=== PATIENT | female | born 1975 | race American Indian/Alaskan Native ===

== ENCOUNTER 2017-09-16 08:20 | Day surgery (SDC) | payer BC ==
[2017-09-16 12:26] VITALS: BP 136/77
--- NOTE | 2017-09-16 14:04 | Ultrasound Report ---
ULTRASOUND BIOPSY THYROID History: Goiter. Description of procedure: Informed consent was obtained. Sterile technique was utilized. 1% lidocaine for skin anesthesia. Using ultrasound guidance, 2 fine needle aspirations were obtained from a 1.5 x 0.7 cm well-circumscribed nodule in the mid left thyroid lobe. The samples were deemed adequate by the pathologist. This examination was scheduled as a bilateral thyroid FNA/biopsy. No suspicious right thyroid nodule is demonstrated on ultrasound. Biopsy on the right side was not performed. Impression: Successful ultrasound-guided fine needle aspiration of a 1.5 cm left thyroid nodule.
--- NOTE | 2017-09-16 15:36 | Short Stay Summary ---
Short Stay Documentation Date of service: 09/16/17 - History Principal diagnosis: thyroid nodules H&P: obtained from office - Allergies and Medications Current Medications: Allergies azithromycin [From Zithromax] Adverse Reaction (Severe, Verified 09/16/17 08:46) Nausea ibuprofen [From Advil] Adverse Reaction (Intermediate, Verified 09/16/17 08:46) Nausea Home Medications Medication Instructions Recorded Confirmed Last Taken Type Metoprolol [Lopressor TAB] 50 mg PO QDAY 09/16/17 09/16/17 09/16/17 09:20 History - Physical exam General appearance: no acute distress - Brief post op/procedure progress note Date of procedure: 09/16/17 Pre-op diagnosis: thyroid nodules Post-op diagnosis: same Procedure: US thyroid biopsy, left Anesthesia: local Findings: 1.5cm nodule Surgeon: JHON SHARP Estimated blood loss: none Pathology: list (FNA x 2) Specimen disposition: to lab Condition: stable Short Stay Discharge Plan Follow up with: MG GUADALUPE MD [Primary Care Provider] - 7 Days Forms: Work/School Excuse Out Patient, Thyroid Biopsy DC Instructions
== END 2017-09-16 12:30 ==
LOC: CATHLABREC 08:20 → EDSTATUS 09:00 → CATHLABREC 12:30
PROVIDERS: ATTEND Internal Medicine Hematology & Oncology
DX: E04.2 Nontoxic multinodular goiter (principal)
CPT/HCPCS: 60100; 76942; 88112; 88172; 88173; 88305

== ENCOUNTER 2017-10-04 21:30 | Inpatient (IN) | payer BC ==
[2017-10-04] MEDS ORDERED: ASPIRIN PO ONE (22:11)
[2017-10-04 23:36] LABS: Basophils % (Auto) 0.5 % (0.0-1.8); Eosinophils # (Auto) 0.1 K/mm3 (0.0-0.4); Eosinophils % (Auto) 0.8 % (0.0-4.3); Hematocrit 35.6 % (30.3-42.9); Hemoglobin 11.2 gm/dl (10.1-14.3); Lymphocytes # (Auto) 1.3 K/mm3 (1.2-5.4); Lymphocytes % (Auto) 15.2 % (13.4-35.0); Mean Corpuscular HGB Conc 31 % (30-34); Mean Corpuscular Hemoglobin 22 pg (28-32); Mean Corpuscular Volume 69 fl (79-97); Monocytes # (Auto) 0.4 K/mm3 (0.0-0.8); Monocytes % (Auto) 4.6 % (0.0-7.3); Platelet Count 268 K/mm3 (140-440); Red Blood Count 5.14 M/mm3 (3.65-5.03); Red Cell Distribution Width 18.3 % (13.2-15.2)
[2017-10-04 23:37] LABS: INR 0.97 (0.87-1.13)
[2017-10-04 23:50] LABS: BUN/Creatinine Ratio 8; Blood Urea Nitrogen 6 mg/dL (7-17); Calcium 8.9 mg/dL (8.4-10.2); Hemolysis Index 0
[2017-10-05] MEDS ORDERED: MORPHINE IV ONE (00:02)
[2017-10-05] MEDS ORDERED: ZOFRAN IV ONE (00:02)
[2017-10-05] MEDS ORDERED: LOPRESSOR PO ONE (00:02)
--- NOTE | 2017-10-05 00:08 | Emergency Department Report ---
ED Chest Pain HPI - General Chief Complaint: Chest Pain Stated Complaint: CHEST PAIN,SOB Time Seen by Provider: 10/04/17 23:50 Source: patient Mode of arrival: Ambulatory Limitations: No Limitations - History of Present Illness Initial Comments: 41-year-old female with a past medical history of obesity, hypertension, and GERD currently on Depo-Provera (for menstrual cycle regulation) last injection in June presents to the hospital with complaints of chest pain shortness of breath. Symptoms started this morning. She complains of intermittent sharp right-sided chest pain that then moved to the left side. Pain is worse with inspiration and palpation and movement. Pain is moderate to severe in intensity. Positive associated shortness of breath. She is complaining of intermittent right calf pain or swelling overlying down but improved with ambulation. She denies recent travel, history of PE or DVT. She takes metoprolol 50mg for hypertension once a day with last dose yesterday. Patient had a recent thyroid biopsy but not prescribed any thyroid medication. 2 days ago patient had outpatient IV infusion of iron for iron deficiency anemia. - Related Data Home Medications Medication Instructions Recorded Confirmed Last Taken Metoprolol [Lopressor TAB] 50 mg PO QDAY 09/16/17 09/16/17 09/16/17 09:20 Allergies Allergy/AdvReac Type Severity Reaction Status Date / Time azithromycin [From Zithromax] AdvReac Severe Nausea Verified 09/16/17 08:46 ibuprofen [From Advil] AdvReac Intermediate Nausea Verified 09/16/17 08:46 Heart Score - HEART Score History: Slightly suspicious EKG: Normal Age: < 45 Risk factors: 1-2 risk factors Troponin: 1-3x normal limit HEART Score: 2 ED Review of Systems ROS: Stated complaint: CHEST PAIN,SOB Other details as noted in HPI Comment: All other systems reviewed and negative ED Past Medical Hx - Past Medical History Previous Medical History?: Yes Hx Hypertension: Yes (2016) Hx Heart Attack/AMI: No Hx Congestive Heart Failure: No Hx Diabetes: No Hx GERD: Yes - Surgical History Past Surgical History?: Yes Hx Breast Surgery: Yes (Srinath breast reduction 2008) - Social History Smoking Status: Never Smoker Substance Use Type: None - Medications Home Medications: Home Medications Medication Instructions Recorded Confirmed Last Taken Type Metoprolol [Lopressor TAB] 50 mg PO QDAY 09/16/17 09/16/17 09/16/17 09:20 History ED Physical Exam - General Limitations: No Limitations - Other Other exam information: General: No limitations, patient is alert in no acute distress Head exam: Atraumatic, normocephalic Eyes exam: Normal appearance, pupils equal reactive to light, extraocular movements intact ENT: Moist mucous membrane, normal oropharynx Neck exam: Normal inspection, full range of motion, no meningismus nontender Respiratory exam: Clear to auscultation bilateral, no wheezes, rales, crackles Cardiovascular: Tachycardic regular rhythm. Reproducible right upper anterior chest wall tenderness Abdomen: Soft, nondistended, and nontender, with normal bowel sounds, no rebound, or guarding Extremity: Full range of motion, right calf tenderness without edema or asymmetry Back: Normal Inspection, full range of motion, no tenderness Neurologic: Alert, oriented x3, cranial nerves intact, no motor or sensory deficit Psychiatric: normal affect, normal mood Skin: Warm, dry, intact ED Course Vital Signs 10/04/17 10/04/17 10/05/17 21:43 23:49 00:15 Temperature 98.4 F Pulse Rate 118 H 150 H Respiratory 24 19 Rate Blood Pressure 153/106 152/114 O2 Sat by Pulse 96 Oximetry 10/05/17 10/05/17 10/05/17 00:30 00:32 01:00 Temperature Pulse Rate 113 H 112 H Respiratory 18 Rate Blood Pressure 160/106 152/14 148/109 O2 Sat by Pulse Oximetry ED Medical Decision Making - Lab Data Result diagrams: 10/04/17 23:15 10/04/17 23:15 Lab Results 10/04/17 10/04/17 10/04/17 Range/Units 23:15 23:15 23:15 WBC 8.6 (4.5-11.0) K/mm3 RBC 5.14 H (3.65-5.03) M/mm3 Hgb 11.2 (10.1-14.3) gm/dl Hct 35.6 (30.3-42.9) % MCV 69 L (79-97) fl MCH 22 L (28-32) pg MCHC 31 (30-34) % RDW 18.3 H (13.2-15.2) % Plt Count 268 (140-440) K/mm3 Lymph % (Auto) 15.2 (13.4-35.0) % [place] % (Auto) 4.6 (0.0-7.3) % Eos % (Auto) 0.8 (0.0-4.3) % Baso % (Auto) 0.5 (0.0-1.8) % Lymph # 1.3 (1.2-5.4) K/mm3 [place] # 0.4 (0.0-0.8) K/mm3 Eos # 0.1 (0.0-0.4) K/mm3 Baso # 0.0 (0.0-0.1) K/mm3 Seg Neutrophils % 78.9 H (40.0-70.0) % Seg Neutrophils # 6.8 (1.8-7.7) K/mm3 PT (12.2-14.9) Sec. INR (0.87-1.13) D-Dimer (0-234) ng/mlDDU Sodium 137 (137-145) mmol/L Potassium 4.1 (3.6-5.0) mmol/L Chloride 100.5 (98-107) mmol/L Carbon Dioxide 25 (22-30) mmol/L Anion Gap 16 mmol/L BUN 6 L (7-17) mg/dL Creatinine 0.8 (0.7-1.2) mg/dL Estimated GFR > 60 ml/min BUN/Creatinine Ratio 8 % Glucose 136 H (65-100) mg/dL Calcium 8.9 (8.4-10.2) mg/dL Troponin T 0.168 H* (0.00-0.029) ng/mL Triglycerides 58 (2-149) mg/dL Cholesterol 137 (50-199) mg/dL LDL Cholesterol Direct 79 (50-130) mg/dL HDL Cholesterol 47 (40-59) mg/dL Cholesterol/HDL Ratio 2.91 % TSH (0.270-4.200) mlU/mL Free T4 (0.76-1.46) ng/dL HCG, Qual Negative (Negative) Urine Color (Yellow) Urine Turbidity (Clear) Urine pH (5.0-7.0) Ur Specific [place] (1.003-1.030) Urine Protein (Negative) mg/dL Urine Glucose (UA) (Negative) mg/dL Urine Ketones (Negative) mg/dL Urine Blood (Negative) Urine Nitrite (Negative) Urine Bilirubin (Negative) Urine Urobilinogen (<2.0) mg/dL Ur Leukocyte Esterase (Negative) Urine WBC (Auto) (0.0-6.0) /HPF Urine RBC (Auto) (0.0-6.0) /HPF U Epithel Cells (Auto) (0-13.0) /HPF Urine Mucus /HPF 10/04/17 10/05/17 10/05/17 Range/Units 23:15 00:28 00:28 WBC (4.5-11.0) K/mm3 RBC (3.65-5.03) M/mm3 Hgb (10.1-14.3) gm/dl Hct (30.3-42.9) % MCV (79-97) fl MCH (28-32) pg MCHC (30-34) % RDW (13.2-15.2) % Plt Count (140-440) K/mm3 Lymph % (Auto) (13.4-35.0) % [place] % (Auto) (0.0-7.3) % Eos % (Auto) (0.0-4.3) % Baso % (Auto) (0.0-1.8) % Lymph # (1.2-5.4) K/mm3 [place] # (0.0-0.8) K/mm3 Eos # (0.0-0.4) K/mm3 Baso # (0.0-0.1) K/mm3 Seg Neutrophils % (40.0-70.0) % Seg Neutrophils # (1.8-7.7) K/mm3 PT 13.4 (12.2-14.9) Sec. INR 0.97 (0.87-1.13) D-Dimer 2453.83 H (0-234) ng/mlDDU Sodium (137-145) mmol/L Potassium (3.6-5.0) mmol/L Chloride (98-107) mmol/L Carbon Dioxide (22-30) mmol/L Anion Gap mmol/L BUN (7-17) mg/dL Creatinine (0.7-1.2) mg/dL Estimated GFR ml/min BUN/Creatinine Ratio % Glucose (65-100) mg/dL Calcium (8.4-10.2) mg/dL Troponin T 0.151 H* (0.00-0.029) ng/mL Triglycerides (2-149) mg/dL Cholesterol (50-199) mg/dL LDL Cholesterol Direct (50-130) mg/dL HDL Cholesterol (40-59) mg/dL Cholesterol/HDL Ratio % TSH 1.460 (0.270-4.200) mlU/mL Free T4 1.33 (0.76-1.46) ng/dL HCG, Qual (Negative) Urine Color (Yellow) Urine Turbidity (Clear) Urine pH (5.0-7.0) Ur Specific [place] (1.003-1.030) Urine Protein (Negative) mg/dL Urine Glucose (UA) (Negative) mg/dL Urine Ketones (Negative) mg/dL Urine Blood (Negative) Urine Nitrite (Negative) Urine Bilirubin (Negative) Urine Urobilinogen (<2.0) mg/dL Ur Leukocyte Esterase (Negative) Urine WBC (Auto) (0.0-6.0) /HPF Urine RBC (Auto) (0.0-6.0) /HPF U Epithel Cells (Auto) (0-13.0) /HPF Urine Mucus /HPF 10/05/17 Range/Units 00:47 WBC (4.5-11.0) K/mm3 RBC (3.65-5.03) M/mm3 Hgb (10.1-14.3) gm/dl Hct (30.3-42.9) % MCV (79-97) fl MCH (28-32) pg MCHC (30-34) % RDW (13.2-15.2) % Plt Count (140-440) K/mm3 Lymph % (Auto) (13.4-35.0) % [place] % (Auto) (0.0-7.3) % Eos % (Auto) (0.0-4.3) % Baso % (Auto) (0.0-1.8) % Lymph # (1.2-5.4) K/mm3 [place] # (0.0-0.8) K/mm3 Eos # (0.0-0.4) K/mm3 Baso # (0.0-0.1) K/mm3 Seg Neutrophils % (40.0-70.0) % Seg Neutrophils # (1.8-7.7) K/mm3 PT (12.2-14.9) Sec. INR (0.87-1.13) D-Dimer (0-234) ng/mlDDU Sodium (137-145) mmol/L Potassium (3.6-5.0) mmol/L Chloride (98-107) mmol/L Carbon Dioxide (22-30) mmol/L Anion Gap mmol/L BUN (7-17) mg/dL Creatinine (0.7-1.2) mg/dL Estimated GFR ml/min BUN/Creatinine Ratio % Glucose (65-100) mg/dL Calcium (8.4-10.2) mg/dL Troponin T (0.00-0.029) ng/mL Triglycerides (2-149) mg/dL Cholesterol (50-199) mg/dL LDL Cholesterol Direct (50-130) mg/dL HDL Cholesterol (40-59) mg/dL Cholesterol/HDL Ratio % TSH (0.270-4.200) mlU/mL Free T4 (0.76-1.46) ng/dL HCG, Qual (Negative) Urine Color Yellow (Yellow) Urine Turbidity Clear (Clear) Urine pH 6.0 (5.0-7.0) Ur Specific [place] 1.019 (1.003-1.030) Urine Protein 100 mg/dl (Negative) mg/dL Urine Glucose (UA) Neg (Negative) mg/dL Urine Ketones Tr (Negative) mg/dL Urine Blood Lg (Negative) Urine Nitrite Neg (Negative) Urine Bilirubin Neg (Negative) Urine Urobilinogen < 2.0 (<2.0) mg/dL Ur Leukocyte Esterase Neg (Negative) Urine WBC (Auto) 21.0 H (0.0-6.0) /HPF Urine RBC (Auto) > 182.0 (0.0-6.0) /HPF U Epithel Cells (Auto) 10.0 (0-13.0) /HPF Urine Mucus 2+ /HPF - EKG Data -: EKG Interpreted by Ct EKG shows normal: sinus rhythm, axis (qrs 87), QRS complexes (qrsd 81), ST-T waves (no steim/ t inv) Rate: tachycardia (120) - EKG Data When compared to previous EKG there are: previous EKG unavailable 10/05/17 02:04 repeat ekg sinus tach rate 113, no acute changes - Radiology Data Radiology results: report reviewed cxr FINDINGS: The heart size and mediastinum appear normal. The lungs are clear. Pleural fluid is not seen. The bones soft tissues do not show any acute changes. IMPRESSION: No active chest disease. ct angio chest IMPRESSION: Multiple bilateral pulmonary emboli. No evidence of right heart strain. No evidence of congestion infiltrates or effusions. - Medical Decision Making + PE lovenox given persistant tachycardia depsite metoprolol dose sat in the 90's no signs of right heart strain or central PE therefore vascular not emergently consultated Bilateral Doppler ordered for a.m. Patient received morphine and Zofran for pain Associated mild elevation of troponin was stable upon repeat blood draw Hospice in for information - Differential Diagnosis hyperthyroidism, PE, anemia, beta love withdraw, chest wall pain Critical Care Time: No Critical care attestation.: If time is entered above; I have spent that time in minutes in the direct care of this critically ill patient, excluding procedure time. ED Disposition Clinical Impression: Pulmonary embolism, bilateral, Sinus tachycardia, Depo-Provera contraceptive status, Obesity, Elevated troponin, HTN (hypertension) Disposition: 09 OP ADMIT IP TO THIS HOSP Is pt being admited?: Yes Condition: Stable Instructions: Hypertension (ED) Time of Disposition: 02:17 (Dr Carvajal/hosp)
--- NOTE | 2017-10-05 00:45 | XRay Report ---
FINAL REPORT EXAM: XR CHEST ROUTINE 2V HISTORY: SOB TECHNIQUE: PA and lateral views of the chest were submitted. FINDINGS: The heart size and mediastinum appear normal. The lungs are clear. Pleural fluid is not seen. The bones soft tissues do not show any acute changes. IMPRESSION: No active chest disease.
[2017-10-05 01:10] LABS: Bilirubin,Urine NEG (Negative); Blood,Urine LG (Negative); Color,Urine Yellow (Yellow); Mucus,Urine 2+ /HPF; Urobilinogen,Urine < 2.0 mg/dL (<2.0)
[2017-10-05 01:14] LABS: RBC,Urine > 182.0 /HPF (0.0-6.0)
[2017-10-05 01:15] LABS: Free T4 (Free Thyroxine) 1.33 ng/dL (0.76-1.46)
[2017-10-05 01:22] LABS: Chol/HDL Ratio 2.91 %; HDL Cholesterol 47 mg/dL (40-59); LDL Cholesterol,Direct 79 mg/dL (50-130)
--- NOTE | 2017-10-05 02:02 | Cat Scan Report ---
FINAL REPORT EXAM: CT ANGIO CHEST HISTORY: cp, elevated ddimer TECHNIQUE: A CT angiogram was performed following the intravenous injection of 150 cc of Omnipaque 350. Rotational, sagittal, and coronal MIP reconstructions were reviewed. FINDINGS: There are extensive partially occlusive emboli involving the primary and secondary branches arteries in both lungs. There is no evidence of right heart strain. The thoracic aorta is normal in caliber. The heart size is normal. Pericardial fluid is not seen. There is no evidence of adenopathy. The lungs are not congested. The lungs are clear. In the upper abdomen the adrenal glands appear normal. Pleural fluid is not seen. The skeletal structures are well-maintained. At the thoracic inlet the thyroid gland appears normal. IMPRESSION: Multiple bilateral pulmonary emboli. No evidence of right heart strain. No evidence of congestion infiltrates or effusions.
[2017-10-05] MEDS ORDERED: LOVENOX SUB-Q ONE (02:08)
[2017-10-05] MEDS ORDERED: SODIUM CHLORIDE FLUSH SYRINGE 10 ML IV PRN (02:40)
[2017-10-05] MEDS ORDERED: MORPHINE IV PRN (02:40)
[2017-10-05] MEDS ORDERED: ZOFRAN IV PRN (02:40)
--- NOTE | 2017-10-05 03:13 | History and Physical Report ---
History of Present Illness Date of examination: 10/05/17 History of present illness: 41-year-old woman with history of hypertension, GERD comes emergency room complaining of shortness of breath and chest pain that started today. Chest pain was on the right side of the chest which radiated to the left, sharp, constant, intensity 7-10, worse with breathing. Denies nausea vomiting, diaphoresis, palpitation. She has chronic leg tenderness. Patient was started on Depo-Provera in April Review of systems Constitutional: no weight loss, chills Ears, eyes, nose, mouth and throat: no nasal congestion, no nasal discharge, no sinus pressure, no vision change, no red eye. Neck: No neck pain or rigidity. Cardiovascular: no palpitations Respiratory: No cough, shortness of breath Gastrointestinal: no abdominal pain, hematochezia Genitourinary : no dysuria, frequency , no hematuria Musculoskeletal: no joint swelling or muscle ache Integumentary: no rash, no pruritis Neurological: no parathesias, no numbness, no focal weakness Endocrine: no cold or heat intolerance, no polyuria or polydipsia Hematologic/Lymphatic: no easy bruising, no easy bleeding, no gland swelling Allergic/Immunologic: no urticaria, no angioedema. PAST MEDICAL HISTORY: hypertension, GERD PAST SURGICAL HISTORY: Breast reduction, tubal ligation SOCIAL HISTORY: Denies alcohol, tobacco, drugs FAMILY HISTORY: Hypertension Medications and Allergies Allergies Allergy/AdvReac Type Severity Reaction Status Date / Time azithromycin [From Zithromax] AdvReac Severe Nausea Verified 09/16/17 08:46 ibuprofen [From Advil] AdvReac Intermediate Nausea Verified 09/16/17 08:46 Home Medications Medication Instructions Recorded Confirmed Last Taken Type Metoprolol [Lopressor TAB] 50 mg PO QDAY 09/16/17 10/05/17 09/16/17 09:20 History Active Meds: Active Medications Enoxaparin Sodium (Lovenox) 140 mg SUB-Q Q12H YOGESH Ceftriaxone Sodium 1 gm/ (Sodium Chloride) 20 mls @ 20 mls/10 min IV Q24HR@ 2200 YOGESH; Protocol Morphine Sulfate (Morphine) 2 mg IV Q4H PRN PRN Reason: Pain, Moderate (4-6) Ondansetron HCl (Zofran) 4 mg IV Q8H PRN PRN Reason: Nausea And Vomiting Sodium Chloride (Sodium Chloride Flush Syringe 10 Ml) 10 ml IV BID YOGESH Sodium Chloride (Sodium Chloride Flush Syringe 10 Ml) 10 ml IV PRN PRN PRN Reason: LINE FLUSH Exam - Physical Exam Narrative exam: Gen. appearance: Patient lying in bed, no apparent distress HEENT: Normocephalic, atraumatic, pupils equally round and reactive to light, extraocular movement intact, and no sclericterus,. No JVD or thyromegaly or nodule,neck supple, no carotid bruit ,mucous membranes moist, no exudate or erythema Heart: S1, S2, regular rate and rhythm Lungs: Clear to auscultation bilaterally, breathing comfortable Abdomen: Positive bowel sounds, nontender, nondistended, no organomegaly Extremity: No edema, cyanosis, clubbing Skin: No rash, nodules, warm, dry Neuro: Oriented 3, cranial nerves II-12 intact, speech is fluent, motor and sensory intact - Constitutional Vitals: Temp Pulse Resp BP Pulse Ox 98.4 F 115 H 17 133/95 93 10/04/17 21:43 10/05/17 02:00 10/05/17 02:00 10/05/17 02:00 10/05/17 02:00 Results - Labs CBC & Chem 7: 10/04/17 23:15 10/04/17 23:15 Labs: Abnormal lab results 10/04/17 10/04/17 10/04/17 Range/Units 23:15 23:15 23:15 RBC 5.14 H (3.65-5.03) M/mm3 MCV 69 L (79-97) fl MCH 22 L (28-32) pg RDW 18.3 H (13.2-15.2) % Seg Neutrophils % 78.9 H (40.0-70.0) % D-Dimer 2453.83 H (0-234) ng/mlDDU BUN 6 L (7-17) mg/dL Glucose 136 H (65-100) mg/dL Troponin T 0.168 H* (0.00-0.029) ng/mL Urine WBC (Auto) (0.0-6.0) /HPF 10/05/17 10/05/17 Range/Units 00:28 00:47 RBC (3.65-5.03) M/mm3 MCV (79-97) fl MCH (28-32) pg RDW (13.2-15.2) % Seg Neutrophils % (40.0-70.0) % D-Dimer (0-234) ng/mlDDU BUN (7-17) mg/dL Glucose (65-100) mg/dL Troponin T 0.151 H* (0.00-0.029) ng/mL Urine WBC (Auto) 21.0 H (0.0-6.0) /HPF - Imaging and Cardiology EKG: image reviewed Chest x-ray: image reviewed CT scan - chest: report reviewed Assessment and Plan Assessment Bilateral pulmonary emboli secondary to her control UTI Abnormal cardiac enzymes Hypertension Plan Admit to medicine Continue Lovenox, check Doppler of the lower extremity Check cardiac enzymes, consult cardiology Start IV Rocephin, follow cultures DVT prophylaxis
[2017-10-05] MEDS: cefTRIAXone 1 GM in NACL 0.9% 20 ML IV SCH ×2 (03:39→21:58)
--- NOTE | 2017-10-05 10:34 | Event Note ---
Patient with bilateral pulmonary embolism. I have seen and examined her. Will consult Pulmonology. Obtain 2D Echo
[2017-10-05] MEDS: NORVASC PO SCH (11:00)
--- NOTE | 2017-10-05 12:44 | Consultation ---
History of Present Illness Consult date: 10/05/17 Requesting physician: HECTOR NG Consult reason: other (acute PE) History of present illness: The patient has a history of a uterine fibroids. She was placed on Depo- Provera injections in April 2017. To date, she claims that she has only received 2 injections which occurs every 3 months. Yesterday morning, she started experiencing pleuritic right-sided and subsequently substernal chest pain. This was associated with shortness of breath. Due to persistent symptoms , she presented to the ER. Chest CTA revealed multiple bilateral pulmonary emboli. Past History Past Medical History: GERD, hypertension, other (uterine fibroid) Past Surgical History: Other (tubal ligation and reduction mammoplasty.) Social history: (with 2 children). denies: smoking, alcohol abuse Family history: denies: CAD Medications and Allergies Allergies Allergy/AdvReac Type Severity Reaction Status Date / Time azithromycin [From Zithromax] AdvReac Severe Nausea Verified 09/16/17 08:46 ibuprofen [From Advil] AdvReac Intermediate Nausea Verified 09/16/17 08:46 Home Medications Medication Instructions Recorded Confirmed Last Taken Type Metoprolol [Lopressor TAB] 50 mg PO QDAY 09/16/17 10/05/17 09/16/17 09:20 History Active Meds: Active Medications Amlodipine Besylate (Norvasc) 5 mg PO QDAY [facility] Enoxaparin Sodium (Lovenox) 140 mg SUB-Q Q12H [facility] Ceftriaxone Sodium 1 gm/ (Sodium Chloride) 20 mls @ 20 mls/10 min IV Q24HR@ 2200 YOGESH; Protocol Last Admin: 10/05/17 03:39 Dose: 20 mls/10 min Metoprolol Tartrate (Lopressor) 50 mg PO BID [facility] Morphine Sulfate (Morphine) 2 mg IV Q4H PRN PRN Reason: Pain, Moderate (4-6) Ondansetron HCl (Zofran) 4 mg IV Q8H PRN PRN Reason: Nausea And Vomiting Sodium Chloride (Sodium Chloride Flush Syringe 10 Ml) 10 ml IV BID [facility] Sodium Chloride (Sodium Chloride Flush Syringe 10 Ml) 10 ml IV PRN PRN PRN Reason: LINE FLUSH Review of Systems Constitutional: no fever, no chills Ears, nose, mouth and throat: no ear pain, no ear discharge, no sore throat Cardiovascular: chest pain, shortness of breath, no palpitations, no edema Respiratory: shortness of breath, no cough, no hemoptysis Gastrointestinal: no abdominal pain, no nausea, no vomiting, no diarrhea, no constipation Genitourinary Female: no dysuria, no urinary frequency Menstruation: period heavy Rectal: no pain, no bleeding Musculoskeletal: no neck stiffness, no neck pain, no myalgias Integumentary: no rash, no pruritis Neurological: no weakness, no parathesias, no headaches Endocrine: no cold intolerance, no heat intolerance Hematologic/Lymphatic: no easy bruising, no easy bleeding Allergic/Immunologic: no urticaria, no wheezing, no angioedema Physical Examination Vital Signs Last Vital Signs Temp 98.4 F 10/05/17 03:03 Pulse 120 H 10/05/17 03:03 Resp 20 10/05/17 03:03 BP 143/78 10/05/17 03:03 Pulse Ox 98 10/05/17 10:11 General appearance: no acute distress HEENT: Positive: EOMI, Normocephaly, Mucus Membranes Moist Neck: Positive: neck supple, trachea midline Cardiac: Positive: Reg Rate and Rhythm, S1/S2 Lungs: Positive: clear to auscultation Neuro: Positive: Grossly Intact Abdomen: Positive: Soft, Active Bowel Sounds. Negative: Tender Skin: Positive: Clear. Negative: Rash Musculoskeletal: Normal Range of Motion Extremities: Present: normal. Absent: edema Results 10/04/17 23:15 10/04/17 23:15 Coagulation 10/04/17 Range/Units 23:15 PT 13.4 (12.2-14.9) Sec. INR 0.97 (0.87-1.13) Lipids 10/04/17 Range/Units 23:15 Triglycerides 58 (2-149) mg/dL Cholesterol 137 (50-199) mg/dL HDL Cholesterol 47 (40-59) mg/dL Cholesterol/HDL Ratio 2.91 % CBC 10/04/17 Range/Units 23:15 WBC 8.6 (4.5-11.0) K/mm3 RBC 5.14 H (3.65-5.03) M/mm3 Hgb 11.2 (10.1-14.3) gm/dl Hct 35.6 (30.3-42.9) % Plt Count 268 (140-440) K/mm3 Lymph # 1.3 (1.2-5.4) K/mm3 [place] # 0.4 (0.0-0.8) K/mm3 Eos # 0.1 (0.0-0.4) K/mm3 Baso # 0.0 (0.0-0.1) K/mm3 Comprehensive Metabolic Panel 10/04/17 Range/Units 23:15 Sodium 137 (137-145) mmol/L Potassium 4.1 (3.6-5.0) mmol/L Chloride 100.5 (98-107) mmol/L Carbon Dioxide 25 (22-30) mmol/L BUN 6 L (7-17) mg/dL Creatinine 0.8 (0.7-1.2) mg/dL Glucose 136 H (65-100) mg/dL Calcium 8.9 (8.4-10.2) mg/dL - Imaging and Cardiology EKG: image reviewed EKG interpretations - Telemetry EKG Rhythm: Sinus Tachycardia - EKG Sinus rhythms and dysrhythmias: sinus tachycardia Assessment and Plan Agree with anticoagulation regimen. Will initiate antihypertensive medication. Obtain echocardiogram and lower extremity venous Doppler studies. - Patient Problems (1) Acute pulmonary embolism Current Visit: Yes Status: Acute Qualifiers: Pulmonary embolism type: other (2) Depo-Provera contraceptive status Current Visit: Yes Status: Acute (3) HTN (hypertension) Current Visit: Yes Status: Chronic Qualifiers: Hypertension type: essential hypertension Qualified Code(s): I10 - Essential (primary) hypertension (4) Morbid obesity Current Visit: Yes Status: Chronic
[2017-10-05] MEDS: LOPRESSOR PO SCH ×2 (13:02→21:58)
[2017-10-05] MEDS ORDERED: LOVENOX SUB-Q SCH (14:00)
[2017-10-05] MEDS: LOVENOX SUB-Q SCH (15:00)
--- NOTE | 2017-10-05 15:40 | Consultation ---
History of Present Illness Consult date: 10/05/17 Reason for consult: pulmonary embolism History of present illness: History of present illness: 41-year-old woman with history of hypertension, GERD comes emergency room complaining of shortness of breath and chest pain that started today. Chest pain was on the right side of the chest which radiated to the left, sharp, constant, intensity 7-10, worse with breathing. Denies nausea vomiting, diaphoresis, palpitation. She has chronic leg tenderness. Patient was started on Depo-Provera in April Patient also reports discomfort and pain in the right lower extremity. In addition she was immobilized x 2 hours for IV iron infusion 2 weeks ago Past History Past Medical History: GERD, hypertension, other (uterine fibroid) Past Surgical History: Other (tubal ligation and reduction mammoplasty.) Social history: (with 2 children). denies: smoking, alcohol abuse Family history: denies: CAD Medications and Allergies Allergies Allergy/AdvReac Type Severity Reaction Status Date / Time azithromycin [From Zithromax] AdvReac Severe Nausea Verified 09/16/17 08:46 ibuprofen [From Advil] AdvReac Intermediate Nausea Verified 09/16/17 08:46 Home Medications Medication Instructions Recorded Confirmed Last Taken Type Metoprolol [Lopressor TAB] 50 mg PO QDAY 09/16/17 10/05/17 09/16/17 09:20 History Active Meds: Active Medications Amlodipine Besylate (Norvasc) 5 mg PO QDAY [facility] Enoxaparin Sodium (Lovenox) 140 mg SUB-Q Q12H [facility] Ceftriaxone Sodium 1 gm/ (Sodium Chloride) 20 mls @ 20 mls/10 min IV Q24HR@ 2200 [facility]; Protocol Last Admin: 10/05/17 03:39 Dose: 20 mls/10 min Metoprolol Tartrate (Lopressor) 50 mg PO BID [facility] Last Admin: 10/05/17 13:02 Dose: 50 mg Morphine Sulfate (Morphine) 2 mg IV Q4H PRN PRN Reason: Pain, Moderate (4-6) Ondansetron HCl (Zofran) 4 mg IV Q8H PRN PRN Reason: Nausea And Vomiting Sodium Chloride (Sodium Chloride Flush Syringe 10 Ml) 10 ml IV BID [facility] Sodium Chloride (Sodium Chloride Flush Syringe 10 Ml) 10 ml IV PRN PRN PRN Reason: LINE FLUSH Review of Systems Constitutional: fatigue Cardiovascular: shortness of breath Respiratory: shortness of breath, pain on inspiration, snoring Musculoskeletal: other (right lower extremity pain) Physical Examination Vital signs: Vital Signs Temp Pulse Resp BP Pulse Ox 98.4 F 118 H 24 153/106 96 10/04/17 21:43 10/04/17 21:43 10/04/17 21:43 10/04/17 21:43 10/04/17 21:43 General appearance: no acute distress, other (morbidly obese) ENT: oropharynx moist, other (severely crowded oropharynx) Neck: supple, no JVD Ascultation: Bilateral: clear Cardiovascular: regular rate and rhythm Gastrointestinal: normoactive bowel sounds, soft, non-tender, non-distended, other (morbidly obese) Integumentary: normal Extremities: no cyanosis, no edema, cyanosis, other (mild right calf tenderness) Musculoskeletal: no deformities normal mental status, non-focal exam mood appropriate Results - Laboratory Findings CBC and BMP: 10/04/17 23:15 10/04/17 23:15 PT/INR, D-dimer PT 13.4 Sec. (12.2-14.9) 10/04/17 23:15 INR 0.97 (0.87-1.13) 10/04/17 23:15 D-Dimer 2453.83 ng/mlDDU (0-234) H 10/04/17 23:15 Abnormal lab findings: Abnormal Labs 10/04/17 10/04/17 10/04/17 23:15 23:15 23:15 RBC 5.14 H MCV 69 L MCH 22 L RDW 18.3 H Seg Neutrophils % 78.9 H D-Dimer 2453.83 H BUN 6 L Glucose 136 H Troponin T 0.168 H* Urine WBC (Auto) 10/05/17 10/05/17 10/05/17 00:28 00:47 08:42 RBC MCV MCH RDW Seg Neutrophils % D-Dimer BUN Glucose Troponin T 0.151 H* 0.103 H* D Urine WBC (Auto) 21.0 H - Diagnostic Findings CT scan - chest: image reviewed (bilateral multiple pulmonary emboli) U/S of Legs: image reviewed (no definite deep venous thrombosis lower extremities) Assessment and Plan Impression: Bilateral pulmonary emboli Rule out DVT lower extremities Morbid obesity Hypertension Suspect obstructive sleep apnea syndrome. Recommendation: Continue with heparin followed by Alexander. Given relatively few symptoms and lack of right ventricular strain, will treat conservatively with anticoagulants. Avoid thrombolytic therapy given patient has fibroid and bleeding issue. Patient would need therapy for 6-12 months Discontinue Depo-Provera
[2017-10-05] MEDS ORDERED: TYLENOL PO PRN (16:30)
[2017-10-05] MEDS: SODIUM CHLORIDE FLUSH SYRINGE 10 ML IV SCH ×2 (21:59)
--- NOTE | 2017-10-05 22:58 | Consultation ---
History of Present Illness - Reason for Consult Consult date: 10/05/17 B/L Pulmonary embolism. Requesting physician: HECTOR NG - History of Present Illness Thank you for this consult. Patient seen/examined, records reviewed, case d/w her. Asked to see for the reason above. patient presented with sxs consistent with thrombotic event. CTA revealed B/L PE. Patient was recently placed on BC agent, DEPO provera.She denies any previous personal hx or family hx of hypercoagulable. she is obese by nature. Notes reviewed, and agree so far with current management.Will do some w/up for reason of completeness.she will eventually switched to oral therapy. Past History Past Medical History: GERD, hypertension, other (uterine fibroid) Past Surgical History: Other (tubal ligation and reduction mammoplasty.) Social history: (with 2 children). denies: smoking, alcohol abuse Family history: denies: CAD Medications and Allergies Allergies Allergy/AdvReac Type Severity Reaction Status Date / Time azithromycin [From Zithromax] AdvReac Severe Nausea Verified 09/16/17 08:46 ibuprofen [From Advil] AdvReac Intermediate Nausea Verified 09/16/17 08:46 Home Medications Medication Instructions Recorded Confirmed Last Taken Type Metoprolol [Lopressor TAB] 50 mg PO QDAY 09/16/17 10/05/17 09/16/17 09:20 History Active Meds: Active Medications Acetaminophen (Tylenol) 650 mg PO Q6H PRN PRN Reason: Pain, Mild (1-3) Last Admin: 10/05/17 16:38 Dose: 650 mg Amlodipine Besylate (Norvasc) 5 mg PO QDAY [facility] Last Admin: 10/05/17 11:00 Dose: Not Given Enoxaparin Sodium (Lovenox) 140 mg SUB-Q Q12H [facility] Last Admin: 10/05/17 15:00 Dose: 140 mg Ceftriaxone Sodium 1 gm/ (Sodium Chloride) 20 mls @ 20 mls/10 min IV Q24HR@ 2200 [facility]; Protocol Last Admin: 10/05/17 21:58 Dose: 20 mls/10 min Metoprolol Tartrate (Lopressor) 50 mg PO BID [facility] Last Admin: 10/05/17 21:58 Dose: 50 mg Morphine Sulfate (Morphine) 2 mg IV Q4H PRN PRN Reason: Pain, Moderate (4-6) Ondansetron HCl (Zofran) 4 mg IV Q8H PRN PRN Reason: Nausea And Vomiting Sodium Chloride (Sodium Chloride Flush Syringe 10 Ml) 10 ml IV BID [facility] Last Admin: 10/05/17 21:59 Dose: 10 ml Sodium Chloride (Sodium Chloride Flush Syringe 10 Ml) 10 ml IV PRN PRN PRN Reason: LINE FLUSH Review of Systems Breasts: deferred Cardiovascular: chest pain, shortness of breath Respiratory: shortness of breath, pain on inspiration Exam - Constitutional Vitals: Temp Pulse Resp BP Pulse Ox 98.1 F 101 H 20 153/95 99 10/05/17 20:35 10/05/17 21:58 10/05/17 20:35 10/05/17 21:58 10/05/17 20:35 General appearance: Present: mild distress, well-nourished - EENT Eyes: Present: PERRL ENT: hearing intact, clear oral mucosa - Neck Neck: Present: supple, normal ROM - Respiratory Respiratory: bilateral: diminished - Cardiovascular Heart Sounds: Present: S1 & S2. Absent: rub, click - Extremities Extremities: pulses symmetrical, No edema Peripheral Pulses: within normal limits - Abdominal General gastrointestinal: Present: soft, non-tender, non-distended, normal bowel sounds Female genitourinary: Present: deferred - Rectal Rectal Exam: deferred - Integumentary Integumentary: Present: clear, warm, dry - Musculoskeletal Musculoskeletal: gait normal, strength equal bilaterally - Psychiatric Psychiatric: appropriate mood/affect, intact judgment & insight - Neurologic Neurologic: CNII-XII intact, moves all extremities Results - Labs CBC & Chem 7: 10/04/17 23:15 10/04/17 23:15 Labs: Abnormal lab results 10/04/17 10/04/17 10/04/17 Range/Units 23:15 23:15 23:15 RBC 5.14 H (3.65-5.03) M/mm3 MCV 69 L (79-97) fl MCH 22 L (28-32) pg RDW 18.3 H (13.2-15.2) % Seg Neutrophils % 78.9 H (40.0-70.0) % D-Dimer 2453.83 H (0-234) ng/mlDDU BUN 6 L (7-17) mg/dL Glucose 136 H (65-100) mg/dL Troponin T 0.168 H* (0.00-0.029) ng/mL Urine WBC (Auto) (0.0-6.0) /HPF 10/05/17 10/05/17 10/05/17 Range/Units 00:28 00:47 08:42 RBC (3.65-5.03) M/mm3 MCV (79-97) fl MCH (28-32) pg RDW (13.2-15.2) % Seg Neutrophils % (40.0-70.0) % D-Dimer (0-234) ng/mlDDU BUN (7-17) mg/dL Glucose (65-100) mg/dL Troponin T 0.151 H* 0.103 H* D (0.00-0.029) ng/mL Urine WBC (Auto) 21.0 H (0.0-6.0) /HPF Assessment and Plan - Patient Problems (1) Acute pulmonary embolism Current Visit: Yes Status: Acute Qualifiers: Pulmonary embolism type: other Plan to address problem: See notes., and orders. (2) Depo-Provera contraceptive status Current Visit: Yes Status: Acute Plan to address problem: Patient will have to discontinue this method of BC. (3) Obesity Current Visit: Yes Status: Acute Plan to address problem: encourage wt control. (4) HTN (hypertension) Current Visit: Yes Status: Chronic Qualifiers: Hypertension type: essential hypertension Qualified Code(s): I10 - Essential (primary) hypertension Plan to address problem: follow cardiology.
[2017-10-05] MEDS: PERCOCET 5/325 PO PRN (23:32)
[2017-10-06] MEDS: LOVENOX SUB-Q SCH ×2 (02:22→14:03)
[2017-10-06] MEDS: APRESOLINE IV PRN (02:46)
[2017-10-06 08:36] LABS: BUN/Creatinine Ratio 12; Blood Urea Nitrogen 11 mg/dL (7-17); Calcium 8.8 mg/dL (8.4-10.2); Hemolysis Index 0
[2017-10-06 08:49] LABS: Hematocrit 33.8 % (30.3-42.9); Lymphocytes % (Auto) 35.5 % (13.4-35.0); Mean Corpuscular HGB Conc 33 % (30-34); Mean Corpuscular Hemoglobin 22 pg (28-32); Mean Corpuscular Volume 68 fl (79-97); Platelet Count 256 K/mm3 (140-440); Red Blood Count 4.96 M/mm3 (3.65-5.03); Red Cell Distribution Width 18.3 % (13.2-15.2)
[2017-10-06 08:50] LABS: Basophils # (Auto) 0.5 K/mm3 (0.0-0.1); Basophils % (Auto) 0.5 % (0.0-1.8); Eosinophils # (Auto) 2.4 K/mm3 (0.0-0.4); Eosinophils % (Auto) 2.4 % (0.0-4.3); Lymphocytes # (Auto) 35.5 K/mm3 (1.2-5.4); Monocytes # (Auto) 6.4 K/mm3 (0.0-0.8); Monocytes % (Auto) 6.4 % (0.0-7.3)
[2017-10-06] MEDS: NORVASC PO SCH (10:00)
[2017-10-06] MEDS: LOPRESSOR PO SCH ×2 (11:00→21:58)
--- NOTE | 2017-10-06 12:25 | Progress Note ---
Assessment and Plan Assessment and plan: Acute multiple bilateral pulmonary embolism. On Lovenox full dose 140mg subcut bid. Pulmonology and Hematology following EF 55-60% No DVT seen on doppler legs. She was on Depo provera injections for control. Will recommend to discontinue on discharge and find alternative means of control Elevated troponin due to acute pulmonary embolism. Cardiology following Urinary tract infection. Continue Ceftriaxone Hypertension. BP not well controlled. Continue Norvasc and Metoprolol. May increase dose of Norvasc oif Morbid obesity. Counseled on diet and exercise to lose weight. Full code status. History Interval history: Less shortness of breath, Less chest pain Hospitalist Physical - Physical exam Narrative exam: General:Not in acute distress, lying in bed, morbiidly obesemalnourished HEENT:Normocephalic, atraumatic Neck:supple,no JVD Lungs: Bibasilar crackles, no wheeze Heart:S1 and S2 regular, no murmurs, rubs or gallop Abd: soft, non tender,non distended, normal bowel sounds Ext: No edema, no clubbing or cyanosis Neuro:Awake,alert,oriented x 3, moves all extremities, Psych:normal mood - Constitutional Vitals: Temp Pulse Resp BP Pulse Ox 98.0 F 103 H 18 167/103 97 10/06/17 11:37 10/06/17 11:37 10/06/17 11:37 10/06/17 11:37 10/06/17 11:37 General appearance: Present: obese Results - Labs CBC & Chem 7: 10/06/17 06:10 10/06/17 06:10 Labs: Laboratory Last Values WBC 8.6 K/mm3 (4.5-11.0) 10/06/17 06:10 RBC 4.96 M/mm3 (3.65-5.03) 10/06/17 06:10 Hgb 11.0 gm/dl (10.1-14.3) 10/06/17 06:10 Hct 33.8 % (30.3-42.9) 10/06/17 06:10 MCV 68 fl (79-97) L 10/06/17 06:10 MCH 22 pg (28-32) L 10/06/17 06:10 MCHC 33 % (30-34) 10/06/17 06:10 RDW 18.3 % (13.2-15.2) H 10/06/17 06:10 Plt Count 256 K/mm3 (140-440) 10/06/17 06:10 Lymph % (Auto) 35.5 % (13.4-35.0) H 10/06/17 06:10 [place] % (Auto) 6.4 % (0.0-7.3) 10/06/17 06:10 Eos % (Auto) 2.4 % (0.0-4.3) 10/06/17 06:10 Baso % (Auto) 0.5 % (0.0-1.8) 10/06/17 06:10 Lymph # 35.5 K/mm3 (1.2-5.4) H 10/06/17 06:10 [place] # 6.4 K/mm3 (0.0-0.8) H 10/06/17 06:10 Eos # 2.4 K/mm3 (0.0-0.4) H 10/06/17 06:10 Baso # 0.5 K/mm3 (0.0-0.1) H 10/06/17 06:10 Seg Neutrophils % 55.2 % (40.0-70.0) 10/06/17 06:10 Seg Neutrophils # 4.7 K/mm3 (1.8-7.7) 10/06/17 06:10 PT 13.4 Sec. (12.2-14.9) 10/04/17 23:15 INR 0.97 (0.87-1.13) 10/04/17 23:15 D-Dimer 2453.83 ng/mlDDU (0-234) H 10/04/17 23:15 Sodium 140 mmol/L (137-145) 10/06/17 06:10 Potassium 4.0 mmol/L (3.6-5.0) 10/06/17 06:10 Chloride 101.6 mmol/L (98-107) 10/06/17 06:10 Carbon Dioxide 24 mmol/L (22-30) 10/06/17 06:10 Anion Gap 18 mmol/L 10/06/17 06:10 BUN 11 mg/dL (7-17) 10/06/17 06:10 Creatinine 0.9 mg/dL (0.7-1.2) 10/06/17 06:10 Estimated GFR > 60 ml/min 10/06/17 06:10 BUN/Creatinine Ratio 12 % 10/06/17 06:10 Glucose 84 mg/dL (65-100) 10/06/17 06:10 Calcium 8.8 mg/dL (8.4-10.2) 10/06/17 06:10 Troponin T 0.103 ng/mL (0.00-0.029) H* D 10/05/17 08:42 C-Reactive Protein 5.70 mg/dL (0.00-1.30) H 10/05/17 23:26 Triglycerides 58 mg/dL (2-149) 10/04/17 23:15 Cholesterol 137 mg/dL (50-199) 10/04/17 23:15 LDL Cholesterol Direct 79 mg/dL (50-130) 10/04/17 23:15 HDL Cholesterol 47 mg/dL (40-59) 10/04/17 23:15 Cholesterol/HDL Ratio 2.91 % 10/04/17 23:15 TSH 1.460 mlU/mL (0.270-4.200) 10/05/17 00:28 Free T4 1.33 ng/dL (0.76-1.46) 10/05/17 00:28 HCG, Qual Negative (Negative) 10/04/17 23:15 Urine Color Yellow (Yellow) 10/05/17 00:47 Urine Turbidity Clear (Clear) 10/05/17 00:47 Urine pH 6.0 (5.0-7.0) 10/05/17 00:47 Ur Specific [place] 1.019 (1.003-1.030) 10/05/17 00:47 Urine Protein 100 mg/dl mg/dL (Negative) 10/05/17 00:47 Urine Glucose (UA) Neg mg/dL (Negative) 10/05/17 00:47 Urine Ketones Tr mg/dL (Negative) 10/05/17 00:47 Urine Blood Lg (Negative) 10/05/17 00:47 Urine Nitrite Neg (Negative) 10/05/17 00:47 Urine Bilirubin Neg (Negative) 10/05/17 00:47 Urine Urobilinogen < 2.0 mg/dL (<2.0) 10/05/17 00:47 Ur Leukocyte Esterase Neg (Negative) 10/05/17 00:47 Urine WBC (Auto) 21.0 /HPF (0.0-6.0) H 10/05/17 00:47 Urine RBC (Auto) > 182.0 /HPF (0.0-6.0) 10/05/17 00:47 U Epithel Cells (Auto) 10.0 /HPF (0-13.0) 10/05/17 00:47 Urine Mucus 2+ /HPF 10/05/17 00:47
[2017-10-06] MEDS: PERCOCET 5/325 PO PRN ×2 (14:02→21:59)
--- NOTE | 2017-10-06 14:28 | Progress Note ---
Assessment and Plan Bilateral pulmonary emboli. Intermediate. Abnormal cardiac stress markers, mild pulmonary hypertension on echocardiogram Rule out DVT lower extremities Morbid obesity Hypertension Recent estrogen use Recommendations Continue ongoing treatment, standard anticoagulation Ambulate as tolerated, monitor oximetry Agree with potential benefit of HUI screening evaluation. This patient in the context of mild pulmonary hypertension and recent systemic hypertension problems. Discussed with patient Thanks Subjective Date of service: 10/06/17 Interval history: Reports some shortness of breath, mostly on exertion. No cough or hemoptysis. No chest pain or presyncope symptoms. She denies prior history of DVT or clots. Denies snoring but noted to have abnormal high blood pressure lately. Objective Vital Signs - 12hr 10/06/17 10/06/17 10/06/17 02:46 05:06 11:00 Temperature Pulse Rate 91 H 98 H Respiratory 20 Rate Blood Pressure 158/100 136/87 150/89 Blood Pressure [Right] O2 Sat by Pulse 98 Oximetry 10/06/17 11:37 Temperature 98.0 F Pulse Rate 103 H Respiratory 18 Rate Blood Pressure Blood Pressure 167/103 [Right] O2 Sat by Pulse 97 Oximetry Constitutional: no acute distress, other (morbidly obese) ENT: oropharynx moist, other (severely crowded oropharynx) Neck: supple, no JVD Ascultation: Bilateral: clear Cardiovascular: regular rate and rhythm Gastrointestinal: normoactive bowel sounds, soft, non-tender, non-distended, other (morbidly obese) Integumentary: normal Extremities: no cyanosis, no edema, cyanosis, other (mild right calf tenderness) Neurologic: normal mental status, non-focal exam Psychiatric: mood appropriate CBC and BMP: 10/06/17 06:10 10/06/17 06:10 ABG, PT/INR, D-dimer: PT/INR, D-dimer PT 13.4 Sec. (12.2-14.9) 10/04/17 23:15 INR 0.97 (0.87-1.13) 10/04/17 23:15 D-Dimer 2453.83 ng/mlDDU (0-234) H 10/04/17 23:15 Abnormal lab findings: Abnormal Labs 10/04/17 10/04/17 10/04/17 23:15 23:15 23:15 RBC 5.14 H MCV 69 L MCH 22 L RDW 18.3 H Lymph % (Auto) Lymph # [place] # Eos # Baso # Seg Neutrophils % 78.9 H D-Dimer 2453.83 H BUN 6 L Glucose 136 H Troponin T 0.168 H* C-Reactive Protein Urine WBC (Auto) 10/05/17 10/05/17 10/05/17 00:28 00:47 08:42 RBC MCV MCH RDW Lymph % (Auto) Lymph # [place] # Eos # Baso # Seg Neutrophils % D-Dimer BUN Glucose Troponin T 0.151 H* 0.103 H* D C-Reactive Protein Urine WBC (Auto) 21.0 H 10/05/17 10/06/17 23:26 06:10 RBC MCV 68 L MCH 22 L RDW 18.3 H Lymph % (Auto) 35.5 H Lymph # 35.5 H [place] # 6.4 H Eos # 2.4 H Baso # 0.5 H Seg Neutrophils % D-Dimer BUN Glucose Troponin T C-Reactive Protein 5.70 H Urine WBC (Auto) CT scan - chest: report reviewed, image reviewed
--- NOTE | 2017-10-06 14:42 | Progress Note ---
Assessment and Plan Assessment: Multiple bilateral pulmonary emboli Minimally elevated troponins - with downwards trend Sinus tachycardia - improving Depo-Provera contraceptive status HTN Morbid obesity ? HUI Mild pulmonary HTN Plan: Echo reviewed - TDS and limited study because pt declined contrast, EF 55-60%, impaired relaxation, mild pulm HTN with RVSP 48mmHg, RV mildly dilated. BLE venoux duplex negative for SVT/DVT. Optimize anti-hypertensive regimen - pt refusing amlodipine a she states this medication causes ringing in her ears. Will increase lopressor. Pt currently on full dosage lovenox BID for systemic anticoagulation. Recommend conversion to OAC per primary prior to hospital discharge. Currently stable cardiac status. Nothing further to add from cardiac perspective at this time. Can consider ischemic evaluation as OP. Recommend follow up in our office with Dr. Up within 1-2 weeks of hospital discharge ([phone]). Assessment and plan reviewed with pt and pt's family at bedside. The patient has been seen in conjunction with Dr. Miller who agrees with the assessment and plan of care. Subjective Date of service: 10/06/17 Principal diagnosis: chest pain; acute PE Interval history: pt resting up in chair, still with c/o SOB, denies any current chest pain. family at bedside. Objective Last Vital Signs Temp 98.0 F 10/06/17 11:37 Pulse 103 H 10/06/17 11:37 Resp 18 10/06/17 11:37 BP 167/103 10/06/17 11:37 Pulse Ox 97 10/06/17 11:37 - Physical Examination General: No Apparent Distress HEENT: Positive: EOMI, Normocephaly, Mucus Membranes Moist Neck: Positive: neck supple, trachea midline Cardiac: Positive: Reg Rate and Rhythm, S1/S2 Lungs: Positive: clear to auscultation Neuro: Positive: Grossly Intact Abdomen: Positive: Soft, Active Bowel Sounds. Negative: Tender Skin: Positive: Clear. Negative: Rash Musculoskeletal: Normal Range of Motion Extremities: Present: normal. Absent: edema - Labs and Meds CBC 10/06/17 Range/Units 06:10 WBC 8.6 (4.5-11.0) K/mm3 RBC 4.96 (3.65-5.03) M/mm3 Hgb 11.0 (10.1-14.3) gm/dl Hct 33.8 (30.3-42.9) % Plt Count 256 (140-440) K/mm3 Lymph # 35.5 H (1.2-5.4) K/mm3 [place] # 6.4 H (0.0-0.8) K/mm3 Eos # 2.4 H (0.0-0.4) K/mm3 Baso # 0.5 H (0.0-0.1) K/mm3 Comprehensive Metabolic Panel 10/06/17 Range/Units 06:10 Sodium 140 (137-145) mmol/L Potassium 4.0 (3.6-5.0) mmol/L Chloride 101.6 (98-107) mmol/L Carbon Dioxide 24 (22-30) mmol/L BUN 11 (7-17) mg/dL Creatinine 0.9 (0.7-1.2) mg/dL Glucose 84 (65-100) mg/dL Calcium 8.8 (8.4-10.2) mg/dL - Imaging and Cardiology EKG: image reviewed Echo: report reviewed - Telemetry EKG Rhythm: Sinus Rhythm - EKG Sinus rhythms and dysrhythmias: sinus tachycardia
[2017-10-06] MEDS ORDERED: NORVASC PO SCH (16:00)
--- NOTE | 2017-10-06 21:35 | Progress Note ---
Assessment and Plan - Patient Problems (1) Acute pulmonary embolism Current Visit: Yes Status: Acute Qualifiers: Pulmonary embolism type: other Plan to address problem: See notes., and orders. (2) Depo-Provera contraceptive status Current Visit: Yes Status: Acute Plan to address problem: Patient will have to discontinue this method of BC. (3) Obesity Current Visit: Yes Status: Acute Plan to address problem: encourage wt control. (4) HTN (hypertension) Current Visit: Yes Status: Chronic Qualifiers: Hypertension type: essential hypertension Qualified Code(s): I10 - Essential (primary) hypertension Plan to address problem: follow cardiology. Subjective Date of service: 10/06/17 Principal diagnosis: chest pain; acute PE Interval history: Patient seen/examined, records reviewed, case d/w patient, most of the w/up labs still pending results.oral anti coagulation, ie eliquis as she prepares for d/c once ready, as per you. Objective - Constitutional Vitals: Vital Signs - 12hr 10/06/17 10/06/17 10/06/17 11:00 11:37 12:00 Temperature 98.0 F 98.3 F Pulse Rate 98 H 103 H 99 H Respiratory 18 18 Rate Blood Pressure 150/89 Blood Pressure 167/103 158/95 [Right] O2 Sat by Pulse 97 97 Oximetry 10/06/17 10/06/17 15:12 20:09 Temperature 98.4 F 98.8 F Pulse Rate 95 H 101 H Respiratory 18 20 Rate Blood Pressure 141/92 Blood Pressure 151/112 [Right] O2 Sat by Pulse 96 99 Oximetry General appearance: Present: mild distress, well-nourished - EENT Eyes: PERRL, EOM intact ENT: hearing intact, clear oral mucosa Ears: bilateral: normal - Neck Neck: supple, normal ROM - Respiratory Respiratory: bilateral: diminished - Breasts Breasts: deferred - Cardiovascular Rhythm: regular Heart Sounds: Present: S1 & S2. Absent: gallop, rub Extremities: pulses intact, No edema, normal color, Full ROM - Gastrointestinal General gastrointestinal: Present: soft, non-tender, non-distended, normal bowel sounds Rectal Exam: deferred - Genitourinary Female genitourinary: deferred - Integumentary Integumentary: clear, warm, dry - Musculoskeletal Musculoskeletal: 1, strength equal bilaterally - Neurologic Neurologic: moves all extremities - Psychiatric Psychiatric: memory intact, appropriate mood/affect, intact judgment & insight - Labs CBC & Chem 7: 10/06/17 06:10 10/06/17 06:10 Labs: Abnormal lab results 10/05/17 10/06/17 Range/Units 23:26 06:10 MCV 68 L (79-97) fl MCH 22 L (28-32) pg RDW 18.3 H (13.2-15.2) % Lymph % (Auto) 35.5 H (13.4-35.0) % Lymph # 35.5 H (1.2-5.4) K/mm3 [place] # 6.4 H (0.0-0.8) K/mm3 Eos # 2.4 H (0.0-0.4) K/mm3 Baso # 0.5 H (0.0-0.1) K/mm3 C-Reactive Protein 5.70 H (0.00-1.30) mg/dL
[2017-10-06] MEDS: SODIUM CHLORIDE FLUSH SYRINGE 10 ML IV SCH (22:00)
[2017-10-06] MEDS: cefTRIAXone 1 GM in NACL 0.9% 20 ML IV SCH (22:00)
[2017-10-07] MEDS: APRESOLINE IV PRN (01:06)
[2017-10-07] MEDS: LOVENOX SUB-Q SCH ×2 (01:07→14:15)
[2017-10-07] MEDS: LOPRESSOR PO SCH ×3 (09:19→21:19)
[2017-10-07] MEDS: SODIUM CHLORIDE FLUSH SYRINGE 10 ML IV SCH ×3 (10:21→21:20)
--- NOTE | 2017-10-07 11:05 | Query-Infection ---
Latisha Harris___Alfonso Date:__10/07/2017 Remote Sensing Advisor/CDS:___Nicolasa Phone#:___[phone] Exercise your independent professional judgment when responding to this query. Questions asked do not imply a particular answer is desired or expected. We greatly appreciate your clarification on this issue. Clinical Documentation States: 41 Year old female was admitted on 10/04/2017 for SOB and chest pain. The IM H&P note states "UTI." Clinical findings show: (please check applicable parameters) MA (10/04): 150 RR (10/04): 24 Infection, known /suspected, with some of the following indicators; Specify the infection: 3 General parameters [ ] Fever (core temp >38.30C or 100.40F) [ ] Hypothermia (core temp <36C) [X] Heart rate >90 bpm [X] Tachypnea: >20 bpm or pCO2 < 32 mmHg [ ] Altered mental status [ ] Significant edema / +ve fluid balance (>20 ml/kg 24 h) [ ] Hyperglycemia (Bl. glucose >110 mg/dl) w/o diabetes Inflammatory parameters [ ] Leukocytosis (white blood cell count >12,000/l) [ ] Leukopenia (white blood cell count <4,000/l) [ ] Bandemia (immature WBC > 10%) [ ] Leucocyte Left Shift [ ] Plasma procalcitonin>2 SD above the normal value Hemodynamic and tissue perfusion parameters [ ] Arterial hypotension(SBP <90 mmHg, MAP <70 mmHg,or a SBP drop >40 mmHg in adults) [ ] Hyperlactatemia (>3 mmol/l) [ ] Anion Gap (> 11mEG/l) [ ] Decreased capillary refill or mottling Organ dysfunction parameters [ ] Arterial hypoxemia (PaO2/FIO2 <300) [ ] Creatinine increase =0.5 mg/dl [ ] Acute oliguria (urine output <0.5 ml | kg |h or 45 mM/l for at least 2 hrs) [ ] Coagulation abnormalities (INR >1.5 or activated partial thromboplastin time >60 s) [ ] Ileus (absent quiana wel sounds) [ ] Thrombocytopenia (platelet count <100,000/l) [ ] Hyperbilirubinemia (plasma total bilirubin >4 mg/dl) According to the clinical indications above, can Bacteremia be further specified? If so, please indicate below and in your Progress Notes and/ or Discharge Summary. Indicate if the condition was present on admission. PHYSICIAN RESPONSE: [ ] Sepsis [ ] Severe Sepsis [ ] Septic Shock [ ] Septicemia [ ] Sepsis now resolved [ X] SIRS due to non-infectious cause with organ dysfunction [ ] SIRS due to non-infectious cause without organ dysfunction [ ] Other: [ ] Comment/Explanation: Present on Admission: [ Y] Yes (Y) [ ] Clinically undeterminable (W) [ ] No (N) [ ] Ruled Out Please also document response in your Progress Notes and/or Discharge Summary and indicate if the condition was present on admission Notes: SIRS/ SIRS WITH ORGAN DYSFUNCTION Systemic inflammatory response syndrome (SIRS) generally refers to the systemic response to trauma/kumari or other insult such as Acute Myocardial Infarction, Acute Pancreatitis, and Major Surgery with symptoms including fever, tachycardia , tachypnea, and leukocytosis (1). BACTEREMIA Presence of viable bacteria in the circulating blood (2). This term is reserved for patients that do not manifest above SIRS response. SEPTICEMIA Generally refers to a systemic disease associated with the presence of pathological microorganisms or toxins in the blood, which can include bacteria, viruses, fungi or other organisms (1). SEPSIS Generally refers to SIRS due infection (1). SEVERE SEPSIS Generally refers to sepsis associated with acute organ dysfunction (1). SEPTIC SHOCK Generally refers to circulatory failure associated with severe sepsis (2), and defined as hypotension or hypoperfusion despite adequate fluid resuscitation (1 hour) (3). REFERENCES: 1. [place]/Society of Critical Care Medicine Consensus Conference. Definitions for sepsis and organ failure and guidelines for the use of innovative therapies in sepsis. Critical Care Med 1992;20:864 - 74. 2. Ankur grover MM, Job MP, Chapin CHILDS, Skip E, Darin D, Chet D, Juvencio J, Diya SM , Migel JL, Lillian G; International Sepsis Definitions Conference. 2001 SCCM/ESICM/ACCP/ATS/SIS International Sepsis Definitions Conference. Intensive Care Med. 2002;29(4):530-8. Epub 2002Aug 20. Review. PubMed PMID:[id number] 3. ICD-9-CM Official Guidelines for Coding and Reporting 4. Medscape Drugs, Diseases and Procedures references 5. Te[employer]ita Textbook of Internal Medicine. 18th Edition MTDD
--- NOTE | 2017-10-07 13:54 | Progress Note ---
Assessment and Plan Imp: 1. Acute bilateral PE 2. Pulm HTN, probably due to #1 3. Morbid obesity 4. R/o HUI 5. Fe-def anemia due to fibroids Rec: 1. Agree with OAC with Alexander 6-12 months 2. Weight loss 3. Outpatient PSG 4. Hematology f/u re: anemia/PE 5. D/c planning; can f/u with us 1-2 weeks Plan of care reviewed with patient, she understands/agrees Subjective Date of service: 10/07/17 Principal diagnosis: chest pain; acute PE Interval history: No events. SOB with exertion. On RA. No new complaints. Active Medications Acetaminophen (Tylenol) 650 mg PO Q6H PRN PRN Reason: Pain, Mild (1-3) Last Admin: 10/05/17 16:38 Dose: 650 mg Enoxaparin Sodium (Lovenox) 140 mg SUB-Q Q12H [facility] Last Admin: 10/07/17 01:07 Dose: 140 mg Hydralazine HCl (Apresoline) 5 mg IV Q6HR PRN PRN Reason: Hypertension Last Admin: 10/07/17 01:06 Dose: 5 mg Ceftriaxone Sodium 1 gm/ (Sodium Chloride) 20 mls @ 20 mls/10 min IV Q24HR@ 2200 YOGESH; Protocol Last Admin: 10/06/17 22:00 Dose: 20 mls/10 min Metoprolol Tartrate (Lopressor) 50 mg PO TID [facility] Last Admin: 10/07/17 09:19 Dose: 50 mg Morphine Sulfate (Morphine) 2 mg IV Q4H PRN PRN Reason: Pain, Moderate (4-6) Ondansetron HCl (Zofran) 4 mg IV Q8H PRN PRN Reason: Nausea And Vomiting Oxycodone/Acetaminophen (Percocet 5/325) 1 tab PO Q4H PRN PRN Reason: Pain, Moderate (4-6) Last Admin: 10/06/17 21:59 Dose: 1 tab Sodium Chloride (Sodium Chloride Flush Syringe 10 Ml) 10 ml IV BID [facility] Last Admin: 10/07/17 10:21 Dose: 10 ml Sodium Chloride (Sodium Chloride Flush Syringe 10 Ml) 10 ml IV PRN PRN PRN Reason: LINE FLUSH Objective Vital Signs - 12hr 10/07/17 10/07/17 10/07/17 03:00 05:55 08:00 Temperature 98.5 F 98.7 F Pulse Rate 101 H 96 H 96 H Respiratory 20 22 Rate Blood Pressure 139/87 154/99 O2 Sat by Pulse 96 98 Oximetry 10/07/17 09:47 Temperature Pulse Rate Respiratory Rate Blood Pressure O2 Sat by Pulse 100 Oximetry Constitutional: no acute distress, other (morbidly obese) ENT: oropharynx moist, other (severely crowded oropharynx) Neck: supple, no JVD Ascultation: Bilateral: clear Cardiovascular: regular rate and rhythm Gastrointestinal: normoactive bowel sounds, soft, non-tender, non-distended, other (morbidly obese) Integumentary: normal Extremities: no cyanosis, no edema Neurologic: normal mental status, non-focal exam, pupils equal and round, CN II- XII normal Psychiatric: mood appropriate, affect normal CBC and BMP: 10/06/17 06:10 10/06/17 06:10 ABG, PT/INR, D-dimer: PT/INR, D-dimer PT 13.4 Sec. (12.2-14.9) 10/04/17 23:15 INR 0.97 (0.87-1.13) 10/04/17 23:15 D-Dimer 2453.83 ng/mlDDU (0-234) H 10/04/17 23:15 Abnormal lab findings: Abnormal Labs 10/04/17 10/04/17 10/04/17 23:15 23:15 23:15 RBC 5.14 H MCV 69 L MCH 22 L RDW 18.3 H Lymph % (Auto) Lymph # [place] # Eos # Baso # Seg Neutrophils % 78.9 H D-Dimer 2453.83 H BUN 6 L Glucose 136 H Troponin T 0.168 H* C-Reactive Protein Urine WBC (Auto) 10/05/17 10/05/17 10/05/17 00:28 00:47 08:42 RBC MCV MCH RDW Lymph % (Auto) Lymph # [place] # Eos # Baso # Seg Neutrophils % D-Dimer BUN Glucose Troponin T 0.151 H* 0.103 H* D C-Reactive Protein Urine WBC (Auto) 21.0 H 10/05/17 10/06/17 23:26 06:10 RBC MCV 68 L MCH 22 L RDW 18.3 H Lymph % (Auto) 35.5 H Lymph # 35.5 H [place] # 6.4 H Eos # 2.4 H Baso # 0.5 H Seg Neutrophils % D-Dimer BUN Glucose Troponin T C-Reactive Protein 5.70 H Urine WBC (Auto) Chest x-ray: report reviewed, image reviewed CT scan - chest: report reviewed, image reviewed
--- NOTE | 2017-10-07 21:39 | Progress Note ---
Assessment and Plan - Patient Problems (1) Acute pulmonary embolism Current Visit: Yes Status: Acute Qualifiers: Pulmonary embolism type: other Plan to address problem: See notes., and orders. (2) Depo-Provera contraceptive status Current Visit: Yes Status: Acute Plan to address problem: Patient will have to discontinue this method of BC. (3) Obesity Current Visit: Yes Status: Acute Plan to address problem: encourage wt control. (4) HTN (hypertension) Current Visit: Yes Status: Chronic Qualifiers: Hypertension type: essential hypertension Qualified Code(s): I10 - Essential (primary) hypertension Plan to address problem: follow cardiology. Subjective Date of service: 10/07/17 Principal diagnosis: chest pain; acute PE Interval history: Patient seen/examined, records reviewed, case d/w patient, most of the w/up labs still pending results.oral anti coagulation, ie eliquis as she prepares for d/c once ready, as per you. Patient seen/examined, resting in bed, family member at the bed side. I have discussed plan/rec with her. she will f/u with Dr BHAKTA office once d/c. Rec to start on eliquis before d/c. Objective - Constitutional Vitals: Vital Signs - 12hr 10/07/17 10/07/17 10/07/17 09:47 12:05 16:28 Temperature 98.2 F 98.7 F Pulse Rate 98 H 89 Respiratory 22 14 Rate Blood Pressure 150/87 150/99 O2 Sat by Pulse 100 98 99 Oximetry 10/07/17 21:11 Temperature 98.7 F Pulse Rate 91 H Respiratory 18 Rate Blood Pressure 142/93 O2 Sat by Pulse 99 Oximetry General appearance: Present: no acute distress, well-nourished - EENT Eyes: PERRL, EOM intact ENT: hearing intact, clear oral mucosa Ears: bilateral: normal - Neck Neck: supple, normal ROM - Respiratory Respiratory effort: normal Respiratory: bilateral: CTA - Breasts Breasts: deferred - Cardiovascular Rhythm: regular Heart Sounds: Present: S1 & S2. Absent: gallop, rub Extremities: pulses intact, No edema, normal color, Full ROM - Gastrointestinal General gastrointestinal: Present: soft, non-tender, non-distended, normal bowel sounds Rectal Exam: deferred - Genitourinary Female genitourinary: deferred - Integumentary Integumentary: clear, warm, dry - Musculoskeletal Musculoskeletal: 1, strength equal bilaterally - Neurologic Neurologic: moves all extremities - Psychiatric Psychiatric: memory intact, appropriate mood/affect, intact judgment & insight - Labs CBC & Chem 7: 10/06/17 06:10 10/06/17 06:10
[2017-10-07] MEDS: cefTRIAXone 1 GM in NACL 0.9% 20 ML IV SCH (22:49)
[2017-10-08] MEDS: LOVENOX SUB-Q SCH (02:29)
--- NOTE | 2017-10-08 07:35 | Progress Note ---
Assessment and Plan Assessment and plan: Acute multiple bilateral pulmonary embolism. On Lovenox full dose 140mg subcut bid. Pulmonology and Hematology following EF 55-60% No DVT seen on doppler legs. She was on Depo provera injections for control. Will recommend to discontinue on discharge and find alternative means of control Elevated troponin due to acute pulmonary embolism. Cardiology following Urinary tract infection. Continue Ceftriaxone Hypertension. BP not well controlled. Continue Norvasc and Metoprolol. May increase dose of Norvasc oif Morbid obesity. Counseled on diet and exercise to lose weight. Full code status. History Interval history: Patient seen and examined, still with some shortness of breath. Hospitalist Physical - Physical exam Narrative exam: General:Not in acute distress, lying in bed, morbiidly obesemalnourished HEENT:Normocephalic, atraumatic Neck:supple,no JVD Lungs: Bibasilar crackles, no wheeze Heart:S1 and S2 regular, no murmurs, rubs or gallop Abd: soft, non tender,non distended, normal bowel sounds Ext: No edema, no clubbing or cyanosis Neuro:Awake,alert,oriented x 3, moves all extremities, Psych:normal mood - Constitutional Vitals: Temp Pulse Resp BP Pulse Ox 97.7 F 87 20 153/96 97 10/07/17 23:22 10/07/17 23:22 10/07/17 23:22 10/07/17 23:22 10/07/17 23:22 General appearance: Present: no acute distress, well-nourished Results - Labs CBC & Chem 7: 10/06/17 06:10 10/06/17 06:10 Labs: Laboratory Last Values WBC 8.6 K/mm3 (4.5-11.0) 10/06/17 06:10 RBC 4.96 M/mm3 (3.65-5.03) 10/06/17 06:10 Hgb 11.0 gm/dl (10.1-14.3) 10/06/17 06:10 Hct 33.8 % (30.3-42.9) 10/06/17 06:10 MCV 68 fl (79-97) L 10/06/17 06:10 MCH 22 pg (28-32) L 10/06/17 06:10 MCHC 33 % (30-34) 10/06/17 06:10 RDW 18.3 % (13.2-15.2) H 10/06/17 06:10 Plt Count 256 K/mm3 (140-440) 10/06/17 06:10 Lymph % (Auto) 35.5 % (13.4-35.0) H 10/06/17 06:10 [place] % (Auto) 6.4 % (0.0-7.3) 10/06/17 06:10 Eos % (Auto) 2.4 % (0.0-4.3) 10/06/17 06:10 Baso % (Auto) 0.5 % (0.0-1.8) 10/06/17 06:10 Lymph # 35.5 K/mm3 (1.2-5.4) H 10/06/17 06:10 [place] # 6.4 K/mm3 (0.0-0.8) H 10/06/17 06:10 Eos # 2.4 K/mm3 (0.0-0.4) H 10/06/17 06:10 Baso # 0.5 K/mm3 (0.0-0.1) H 10/06/17 06:10 Seg Neutrophils % 55.2 % (40.0-70.0) 10/06/17 06:10 Seg Neutrophils # 4.7 K/mm3 (1.8-7.7) 10/06/17 06:10 PT 13.4 Sec. (12.2-14.9) 10/04/17 23:15 INR 0.97 (0.87-1.13) 10/04/17 23:15 D-Dimer 2453.83 ng/mlDDU (0-234) H 10/04/17 23:15 APC Resistance 4.4 ratio (>=2.1) 10/05/17 23:26 Antithrombin III Ag 80 % (80-120) 10/05/17 23:26 Sodium 140 mmol/L (137-145) 10/06/17 06:10 Potassium 4.0 mmol/L (3.6-5.0) 10/06/17 06:10 Chloride 101.6 mmol/L (98-107) 10/06/17 06:10 Carbon Dioxide 24 mmol/L (22-30) 10/06/17 06:10 Anion Gap 18 mmol/L 10/06/17 06:10 BUN 11 mg/dL (7-17) 10/06/17 06:10 Creatinine 0.9 mg/dL (0.7-1.2) 10/06/17 06:10 Estimated GFR > 60 ml/min 10/06/17 06:10 BUN/Creatinine Ratio 12 % 10/06/17 06:10 Glucose 84 mg/dL (65-100) 10/06/17 06:10 Calcium 8.8 mg/dL (8.4-10.2) 10/06/17 06:10 Troponin T 0.103 ng/mL (0.00-0.029) H* D 10/05/17 08:42 C-Reactive Protein 5.70 mg/dL (0.00-1.30) H 10/05/17 23:26 Triglycerides 58 mg/dL (2-149) 10/04/17 23:15 Cholesterol 137 mg/dL (50-199) 10/04/17 23:15 LDL Cholesterol Direct 79 mg/dL (50-130) 10/04/17 23:15 HDL Cholesterol 47 mg/dL (40-59) 10/04/17 23:15 Cholesterol/HDL Ratio 2.91 % 10/04/17 23:15 TSH 1.460 mlU/mL (0.270-4.200) 10/05/17 00:28 Free T4 1.33 ng/dL (0.76-1.46) 10/05/17 00:28 HCG, Qual Negative (Negative) 10/04/17 23:15 Urine Color Yellow (Yellow) 10/05/17 00:47 Urine Turbidity Clear (Clear) 10/05/17 00:47 Urine pH 6.0 (5.0-7.0) 10/05/17 00:47 Ur Specific [place] 1.019 (1.003-1.030) 10/05/17 00:47 Urine Protein 100 mg/dl mg/dL (Negative) 10/05/17 00:47 Urine Glucose (UA) Neg mg/dL (Negative) 10/05/17 00:47 Urine Ketones Tr mg/dL (Negative) 10/05/17 00:47 Urine Blood Lg (Negative) 10/05/17 00:47 Urine Nitrite Neg (Negative) 10/05/17 00:47 Urine Bilirubin Neg (Negative) 10/05/17 00:47 Urine Urobilinogen < 2.0 mg/dL (<2.0) 10/05/17 00:47 Ur Leukocyte Esterase Neg (Negative) 10/05/17 00:47 Urine WBC (Auto) 21.0 /HPF (0.0-6.0) H 10/05/17 00:47 Urine RBC (Auto) > 182.0 /HPF (0.0-6.0) 10/05/17 00:47 U Epithel Cells (Auto) 10.0 /HPF (0-13.0) 10/05/17 00:47 Urine Mucus 2+ /HPF 10/05/17 00:47
[2017-10-08 08:06] VITALS: BP 146/89
[2017-10-08] MEDS: SODIUM CHLORIDE FLUSH SYRINGE 10 ML IV SCH (09:13)
[2017-10-08] MEDS: LOPRESSOR PO SCH (09:14)
[2017-10-08] MEDS ORDERED: ELIQUIS PO SCH ×2 (10:00)
--- NOTE | 2017-10-08 11:54 | Discharge Summary ---
Providers - Providers Date of Admission: 10/05/17 02:40 Attending physician: ANUM KIM MD 10/05/17 08:16 Consult to Physician [CONS] Routine Comment: Consulting Provider: SWEETIE LEO Physician Instructions: Reason For Exam: Bilateral pulm embolism 10/05/17 15:46 Consult to Physician [CONS] Routine Comment: Consulting Provider: JULIETTE OLMEDO Physician Instructions: Reason For Exam: Bilateral pulmonary embolism Primary care physician: BOBY LYNN Hospitalization Reason for admission: shortness of breath Condition: Stable Hospital course: 41-year-old woman with history of hypertension, GERD comes emergency room complaining of shortness of breath and chest pain that started today. Chest pain was on the right side of the chest which radiated to the left, sharp, constant, intensity 7-10, worse with breathing. Denies nausea vomiting, diaphoresis, palpitation. She has chronic leg tenderness. Patient was started on Depo-Provera in April. Patient was diagnosed with acute multiple bilateral pulmonary embolism syndrome. she was subsequently seen by hematology oncologist recommendations were oriented Depo-Provera injections which she started in June. She also was noted to have elevated troponin but pewter finisher deemed that this was secondary to pulmonary embolism pulmonary status improved. She was seen by communications advisor recommendation to have an outpatient obstructive sleep apnea study patient verbalized understanding that she is stable at this point for discharge. She was treated for urinary tract infection with ceftriaxone. Cultures were unremarkable. She was also counseled the to lose weight. The patient verbalized understanding we'll second. Discharge diagnosis Acute multiple bilateral pulmonary embolism. Type II PR secondary to pulmonary embolism Urinary tract infection. Hypertension. Morbid obesity. Disposition: TO HOME OR SELFCARE Time spent for discharge: 35 mins Core Measure Documentation - Palliative Care Palliative Care/ Comfort Measures: Not Applicable - Core Measures Any of the following diagnoses?: DVT/PE - VTE Discharge Requirements Deep Vein Thrombosis/Pulmonary Embolism Present on Admission: Yes Has pt received <5 days of overlap therapy or INR<2.0: Yes Anticoagulant overlap therapy prescribed at discharge: Yes Exam - Physical Exam Narrative exam: General:Not in acute distress, lying in bed, morbiidly obesemalnourished HEENT:Normocephalic, atraumatic Neck:supple,no JVD Lungs: Bibasilar crackles, no wheeze Heart:S1 and S2 regular, no murmurs, rubs or gallop Abd: soft, non tender,non distended, normal bowel sounds Ext: No edema, no clubbing or cyanosis Neuro:Awake,alert,oriented x 3, moves all extremities, Psych:normal mood - Constitutional Vitals: Temp Pulse Resp BP Pulse Ox 98.2 F 94 H 20 146/89 95 10/08/17 07:54 10/08/17 07:54 10/08/17 07:54 10/08/17 09:14 10/08/17 09:13 Plan Activity: advance as tolerated, fall precautions Diet: low cholesterol Special Instructions: record daily weights, record daily BP diary Follow up with: BOBY LYNN MD [Primary Care Provider] - 7 Days MORTEZA HOOVER MD [Staff Physician] - 7 Days JULIETTE OLMEDO DO [Staff Physician] - 7 Days Prescriptions: Apixaban [Eliquis] 5 mg PO BID #60 tablet Metoprolol [Lopressor TAB] 50 mg PO BID #60 tablet traMADol [Ultram 50 MG tab] 50 mg PO Q6HR PRN #20 tablet PRN Reason: Pain
[2017-10-08 13:09] LABS: Protein S, Free 139 % normal (50-147); Protein S, Total 134 % (70-140)
--- NOTE | 2017-10-08 14:57 | Vascular Lab Report ---
LOWER EXTREMITY VENOUS DUPLEX: REASON FOR EXAM: Pulmonary embolism. COMMENTS ON THE RIGHT: All veins visualized are freely compressible without evidence of internal echogenicity. Flow is spontaneous and phasic throughout. COMMENTS ON THE LEFT: All veins visualized are freely compressible without evidence of internal echogenicity. Flow is spontaneous and phasic throughout. IMPRESSION: No evidence of acute or chronic deep venous thrombosis in either lower extremity.
--- NOTE | 2017-10-08 15:09 | Progress Note ---
Assessment and Plan Imp: 1. Acute bilateral PE 2. Pulm HTN, probably due to #1 3. Morbid obesity 4. R/o HUI 5. Fe-def anemia due to fibroids Rec: 1. Agree with OAC with Eliquis 6-12 months 2. Weight loss 3. Outpatient PSG 4. Hematology f/u re: anemia/PE 5. D/c planning; can f/u with us 1-2 weeks Plan of care reviewed with patient, she understands/agrees Subjective Date of service: 10/08/17 Principal diagnosis: chest pain; acute PE Interval history: No events. SOB with exertion. On RA. No new complaints. Active Medications Acetaminophen (Tylenol) 650 mg PO Q6H PRN PRN Reason: Pain, Mild (1-3) Last Admin: 10/05/17 16:38 Dose: 650 mg Apixaban (Eliquis) 10 mg PO Q12HR [facility]; Protocol Last Admin: 10/08/17 09:14 Dose: 10 mg Hydralazine HCl (Apresoline) 5 mg IV Q6HR PRN PRN Reason: Hypertension Last Admin: 10/07/17 01:06 Dose: 5 mg Ceftriaxone Sodium 1 gm/ (Sodium Chloride) 20 mls @ 20 mls/10 min IV Q24HR@ 2200 YOGESH; Protocol Last Admin: 10/07/17 22:49 Dose: 20 mls/10 min Metoprolol Tartrate (Lopressor) 50 mg PO TID [facility] Last Admin: 10/08/17 09:14 Dose: 50 mg Morphine Sulfate (Morphine) 2 mg IV Q4H PRN PRN Reason: Pain, Moderate (4-6) Last Admin: 10/07/17 17:46 Dose: 2 mg Ondansetron HCl (Zofran) 4 mg IV Q8H PRN PRN Reason: Nausea And Vomiting Oxycodone/Acetaminophen (Percocet 5/325) 1 tab PO Q4H PRN PRN Reason: Pain, Moderate (4-6) Last Admin: 10/06/17 21:59 Dose: 1 tab Sodium Chloride (Sodium Chloride Flush Syringe 10 Ml) 10 ml IV BID [facility] Last Admin: 10/08/17 09:13 Dose: 10 ml Sodium Chloride (Sodium Chloride Flush Syringe 10 Ml) 10 ml IV PRN PRN PRN Reason: LINE FLUSH Last Admin: 10/07/17 22:50 Dose: 10 ml Objective Vital Signs - 12hr 10/08/17 10/08/17 10/08/17 07:54 09:13 09:14 Temperature 98.2 F Pulse Rate 94 H Respiratory 20 Rate Blood Pressure 146/89 146/89 O2 Sat by Pulse 94 95 Oximetry Constitutional: no acute distress, other (morbidly obese) ENT: oropharynx moist, other (severely crowded oropharynx) Neck: supple, no JVD Ascultation: Bilateral: clear Cardiovascular: regular rate and rhythm Gastrointestinal: normoactive bowel sounds, soft, non-tender, non-distended, other (morbidly obese) Integumentary: normal Extremities: no cyanosis, no edema Neurologic: normal mental status, non-focal exam, pupils equal and round, CN II- XII normal Psychiatric: mood appropriate, affect normal CBC and BMP: 10/06/17 06:10 10/06/17 06:10 ABG, PT/INR, D-dimer: PT/INR, D-dimer PT 13.4 Sec. (12.2-14.9) 10/04/17 23:15 INR 0.97 (0.87-1.13) 10/04/17 23:15 D-Dimer 2453.83 ng/mlDDU (0-234) H 10/04/17 23:15 Abnormal lab findings: Abnormal Labs 10/04/17 10/04/17 10/04/17 23:15 23:15 23:15 RBC 5.14 H MCV 69 L MCH 22 L RDW 18.3 H Lymph % (Auto) Lymph # [place] # Eos # Baso # Seg Neutrophils % 78.9 H D-Dimer 2453.83 H BUN 6 L Glucose 136 H Troponin T 0.168 H* C-Reactive Protein Urine WBC (Auto) 10/05/17 10/05/17 10/05/17 00:28 00:47 08:42 RBC MCV MCH RDW Lymph % (Auto) Lymph # [place] # Eos # Baso # Seg Neutrophils % D-Dimer BUN Glucose Troponin T 0.151 H* 0.103 H* D C-Reactive Protein Urine WBC (Auto) 21.0 H 10/05/17 10/06/17 23:26 06:10 RBC MCV 68 L MCH 22 L RDW 18.3 H Lymph % (Auto) 35.5 H Lymph # 35.5 H [place] # 6.4 H Eos # 2.4 H Baso # 0.5 H Seg Neutrophils % D-Dimer BUN Glucose Troponin T C-Reactive Protein 5.70 H Urine WBC (Auto) Chest x-ray: report reviewed, image reviewed CT scan - chest: report reviewed, image reviewed
[2017-10-08 22:37] LABS: ANA Screen, IFA Negative (Negative)
== END 2017-10-08 17:59 | disposition home or self-care (01) | DRG 280 ==
LOC: ED 21:30 → 4A 10-05 02:40 → 3A 10-07 15:46
PROVIDERS: ADMIT Internal Medicine; ATTEND Internal Medicine
DX: I21.A1 Myocardial infarction type 2 (principal); I26.99 Other pulmonary embolism without acute cor pulmonale; N39.0 Urinary tract infection, site not specified; Z68.43 Body mass index [BMI] 50.0-59.9, adult; R65.10 Systemic inflammatory response syndrome (SIRS) of non-infectious origin without acute organ dysfunction; I10 Essential (primary) hypertension; E66.01 Morbid (severe) obesity due to excess calories; I27.20 Pulmonary hypertension, unspecified; G47.33 Obstructive sleep apnea (adult) (pediatric); D50.9 Iron deficiency anemia, unspecified; K21.9 Gastro-esophageal reflux disease without esophagitis; Z98.51 Tubal ligation status; Z82.49 Family history of ischemic heart disease and other diseases of the circulatory system; Z71.3 Dietary counseling and surveillance; Z88.1 Allergy status to other antibiotic agents
CPT/HCPCS: 36415; 71046; 71275; 80048; 80061; 81001; 84439; 84443; 84484; 84703; 85025; 85220; 85301; 85305; 85307; 85379; 85610; 86038; 86140; 87086; 93005; 93010; 93306; 93970; 96372; 96374; 96375; J0360; J0696; J1650; J2270; J2405; Q9967

== ENCOUNTER 2019-01-10 21:23 | Emergency (ER) | payer OTHER ==
--- NOTE | 2019-01-10 22:02 | Event Note ---
ED Screening Note Date of service: 01/10/19 Time: 21:58 ED Screening Note: 43 y/o female comes in for chest pain dizziness and right shoulder pain times 1 week but has not improved. Reports breathing is off. PMH: PE, HTN elevated blood sugar. This initial assessment/diagnostic orders/clinical plan/treatment(s) is/are subject to change based on patients health status, clinical progression and re- assessment by fellow clinical providers in the ED. Further treatment and workup at subsequent clinical providers discretion. Patient/guardian urged not to elope from the ED as their condition may be serious if not clinically assessed and managed. Initial orders include:
[2019-01-10 22:46] LABS: Basophils # (Auto) 0.1 K/mm3 (0.0-0.1); Basophils % (Auto) 1.7 % (0.0-1.8); Eosinophils # (Auto) 0.2 K/mm3 (0.0-0.4); Eosinophils % (Auto) 2.6 % (0.0-4.3); Hematocrit 41.3 % (30.3-42.9); Hemoglobin 13.9 gm/dl (10.1-14.3); Lymphocytes # (Auto) 2.5 K/mm3 (1.2-5.4); Lymphocytes % (Auto) 31.9 % (13.4-35.0); Mean Corpuscular HGB Conc 34 % (30-34); Mean Corpuscular Volume 80 fl (79-97); Monocytes # (Auto) 0.6 K/mm3 (0.0-0.8); Monocytes % (Auto) 6.9 % (0.0-7.3); Platelet Count 251 K/mm3 (140-440); Red Blood Count 5.14 M/mm3 (3.65-5.03); Red Cell Distribution Width 15.3 % (13.2-15.2)
[2019-01-10 22:59] LABS: INR 0.95 (0.87-1.13)
[2019-01-10 23:00] LABS: Partial Thromboplastin Time 28.5 Sec. (24.2-36.6)
[2019-01-10 23:13] LABS: Alanine Aminotransferase 11 units/L (7-56); Albumin 4.4 g/dL (3.9-5); BUN/Creatinine Ratio 17; Blood Urea Nitrogen 15 mg/dL (7-17); Calcium 9.7 mg/dL (8.4-10.2); Hemolysis Index 12
--- NOTE | 2019-01-11 00:07 | XRay Report ---
CHEST 2 VIEWS INDICATION / CLINICAL INFORMATION: Chest pain for 2 days. COMPARISON: 10/05/2017. FINDINGS: SUPPORT DEVICES: None. HEART / MEDIASTINUM: The heart size and pulmonary vasculature are normal. The aorta is normal in kathryn cristóbal. LUNGS / PLEURA: No significant pulmonary or pleural abnormality. No pneumothorax. ADDITIONAL FINDINGS: There is partial eventration of the right hemidiaphragm anteriorly which has not changed. IMPRESSION: No acute abnormality or significant change. Signer Name: Angel Caputo MD Signed: 01/11/2019 12:03 AM Workstation Name: [id number]
[2019-01-11 01:49] VITALS: BP 131/82
--- NOTE | 2019-01-11 01:59 | Emergency Department Report ---
ED General Adult HPI - General Chief complaint: Chest Pain Stated complaint: CHEST PAIN, SOB, WEAKNESS Time Seen by Provider: 01/10/19 21:58 Source: patient Mode of arrival: Ambulatory Limitations: No Limitations - History of Present Illness Initial comments: 43 y.o. female with prior history of pulmonary embolism and gastroesophageal reflux disease as well as fibroids presents with the complaint of shortness of breath. Patient complains of right-sided chest pain with radiation to her right shoulder and neck since yesterday. Patient states this pain is not as severe as it was when she was diagnosed with a PE in 2018. Patient states she had a CT which was negative in August 2018 was taken off Eliquis therapy. Patient states she went to [place] last month for similar type chest pain and had a CT PE which was negative. Patient denies any lower extremity swelling. Patient states that she's had 2 days of this right-sided chest pain. Patient denies any fever or chills or vomiting. Severity scale (0 -10): 7 - Related Data Previous Rx's Medication Instructions Recorded Last Taken Type Apixaban [Eliquis] 5 mg PO BID #60 tablet 10/08/17 Unknown Rx Metoprolol [Lopressor TAB] 50 mg PO BID #60 tablet 10/08/17 Unknown Rx traMADol [Ultram 50 MG tab] 50 mg PO Q6HR PRN #20 tablet 10/08/17 Unknown Rx Allergies Allergy/AdvReac Type Severity Reaction Status Date / Time azithromycin [From Zithromax] AdvReac Severe Nausea Verified 09/16/17 08:46 ibuprofen [From Advil] AdvReac Intermediate Nausea Verified 09/16/17 08:46 ED Review of Systems ROS: Stated complaint: CHEST PAIN, SOB, WEAKNESS Other details as noted in HPI Constitutional: denies: chills, fever Eyes: denies: eye pain, eye discharge, vision change ENT: denies: ear pain, throat pain Respiratory: denies: cough, shortness of breath, wheezing Cardiovascular: chest pain Endocrine: no symptoms reported Gastrointestinal: denies: abdominal pain, nausea, diarrhea Genitourinary: denies: urgency, dysuria, discharge Musculoskeletal: denies: back pain, joint swelling, arthralgia Skin: denies: rash, lesions Neurological: denies: headache, weakness, paresthesias Psychiatric: denies: anxiety, depression Hematological/Lymphatic: denies: easy bleeding, easy bruising ED Past Medical Hx - Past Medical History Previous Medical History?: Yes Hx Hypertension: Yes (2015) Hx Heart Attack/AMI: No Hx Congestive Heart Failure: No Hx Diabetes: No Hx Pulmonary Embolism: Yes (September 2017) Hx GERD: Yes Hx COPD: No Additional medical history: fibroids, Iron deficiency - Surgical History Past Surgical History?: Yes Hx Breast Surgery: Yes (Srinath breast reduction 2008) Additional Surgical History: tubal ligation - Social History Smoking Status: Never Smoker Substance Use Type: None - Medications Home Medications: Home Medications Medication Instructions Recorded Confirmed Last Taken Type Apixaban [Eliquis] 5 mg PO BID #60 tablet 10/08/17 Unknown Rx Metoprolol [Lopressor TAB] 50 mg PO BID #60 tablet 10/08/17 Unknown Rx traMADol [Ultram 50 MG tab] 50 mg PO Q6HR PRN #20 tablet 10/08/17 Unknown Rx ED Physical Exam - General Limitations: No Limitations General appearance: alert, in no apparent distress - Head Head exam: Present: atraumatic, normocephalic - Eye Eye exam: Present: normal appearance - ENT ENT exam: Present: mucous membranes moist - Neck Neck exam: Present: normal inspection - Respiratory Respiratory exam: Present: normal lung sounds bilaterally. Absent: respiratory distress - Cardiovascular Cardiovascular Exam: Present: regular rate, normal rhythm. Absent: systolic murmur, diastolic murmur, rubs, gallop - GI/Abdominal GI/Abdominal exam: Present: soft, normal bowel sounds - Extremities Exam Extremities exam: Present: normal inspection - Back Exam Back exam: Present: normal inspection - Neurological Exam Neurological exam: Present: alert, oriented X3 - Psychiatric Psychiatric exam: Present: normal affect, normal mood - Skin Skin exam: Present: warm, dry, intact, normal color. Absent: rash ED Course Vital Signs 01/10/19 01/10/19 01/11/19 21:43 21:58 01:07 Temperature 98.0 F 98 F Pulse Rate 68 68 71 Respiratory 20 18 14 Rate Blood Pressure 150/79 Blood Pressure 150/79 [Left] O2 Sat by Pulse 97 97 100 Oximetry 01/11/19 01/11/19 01/11/19 01:14 01:15 01:31 Temperature Pulse Rate 59 L 57 L Respiratory 18 18 16 Rate Blood Pressure 98/77 Blood Pressure [Left] O2 Sat by Pulse 98 Oximetry 01/11/19 01:45 Temperature Pulse Rate 63 Respiratory 12 Rate Blood Pressure 131/82 Blood Pressure [Left] O2 Sat by Pulse 98 Oximetry ED Medical Decision Making - Lab Data Result diagrams: 01/10/19 22:26 01/10/19 22:26 - EKG Data EKG shows normal: sinus rhythm Rate: normal - EKG Data When compared to previous EKG there are: no significant change - Medical Decision Making Patient has a negative troponin as well as a negative chest x-ray. Low suspicion for PE with patient having a recent CT PE which was negative one month ago. Patient currently sitting upright, 1 is no acute distress. Patient has a normal neurologic exam and will be discharged to follow up with cardiology as an outpatient. - Differential Diagnosis Pneumonia; Dehydration; Arryhtmia; NSTEMI; STEMI Critical care attestation.: If time is entered above; I have spent that time in minutes in the direct care of this critically ill patient, excluding procedure time. ED Disposition Clinical Impression: Chest pain Disposition: DC-01 TO HOME OR SELFCARE Is pt being admited?: No Does the pt Need Aspirin: No Condition: Stable Instructions: Chest Pain (ED) Referrals: JASVIR MILLER MD [Staff Physician] - 3-5 Days Forms: Accompanied Note, Work/School Release Form(ED) Time of Disposition: 01:58 Print Language: CHINESE
== END 2019-01-11 02:17 | disposition home or self-care (01) ==
LOC: ED 21:23
DX: R07.89 Other chest pain (principal); R06.02 Shortness of breath; I10 Essential (primary) hypertension; K21.9 Gastro-esophageal reflux disease without esophagitis; Z98.51 Tubal ligation status; Z86.2 Personal history of diseases of the blood and blood-forming organs and certain disorders involving the immune mechanism; Z86.711 Personal history of pulmonary embolism; Z79.01 Long term (current) use of anticoagulants; Z79.899 Other long term (current) drug therapy; Z98.890 Other specified postprocedural states
CPT/HCPCS: 36415; 71046; 80053; 84484; 84703; 85025; 85379; 85610; 85730; 93005; 93010

== ENCOUNTER 2019-02-07 15:19 | Emergency (ER) | payer OTHER ==
--- NOTE | 2019-02-07 16:04 | Event Note ---
ED Screening Note Date of service: 02/07/19 Time: 15:56 ED Screening Note: This is a 43 y.o. F. that presents to the ER with dizziness for 2 months. Patient states she went to [facility] that ran multiple test with inconclusive diagnosis. The skin drier at [facility] took her off blood pressure medication on last Friday visit. Reports palpitations started yesterday. LMP 02/06/2019 This initial assessment/diagnostic orders/clinical plan/treatment(s) is/are subject to change based on patients health status, clinical progression and re- assessment by fellow clinical providers in the ED. Further treatment and workup at subsequent clinical providers discretion. Patient/guardian urged not to elope from the ED as their condition may be serious if not clinically assessed and managed. Initial orders include:
[2019-02-07] MEDS ORDERED: ANTIVERT PO ONE (17:56)
--- NOTE | 2019-02-07 18:45 | Cat Scan Report ---
CT head without contrast Coronal history: Headache, dizziness FINDINGS: No previous exams available for comparison. The motion degrades image quality at. However, the brain appears to demonstrate appropriate attenuation. The ventricular system is within normal razo its in size and configuration. There is no clear CT evidence of acute intracranial hemorrhage or sign ificant mass effect. The visualized paranasal sinuses are clear. IMPRESSION: There is no CT evidence of acute intracranial process. Signer Name: Glenroy Johansen MD Signed: 02/07/2019 6:40 PM Workstation Name: [id number]
--- NOTE | 2019-02-07 19:27 | Emergency Department Report ---
ED General Adult HPI - General Chief complaint: Dizziness Stated complaint: LIGHT HEADNESS/DIZZY/CHEST PAIN Time Seen by Provider: 02/07/19 15:56 Source: patient Mode of arrival: Ambulatory Limitations: No Limitations - History of Present Illness Initial comments: Is a 43-year-old female who presents to ED complaining of dizziness lightheadedness and headache that has been initially started about 2 months ago. Patient states she was seen here twice and evaluated as well as seen at [facility] and evaluated. 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 She also states that she saw ENT a while back and cleared her as well. Patient states the past couple of days that the dizziness has worsened to the point where she is unable to work due to the worsening with movement. He also states that she gets intermittent headaches with his dizziness. She does states that she has a history of sinus allergies. Patient does states that dizziness is worse with standing and getting up. Patient denies chest pain, fever, chills, nausea vomiting -: Gradual Improves with: rest Worsens with: movement Associated Symptoms: denies other symptoms. denies: confusion, chest pain, cough, loss of appetite, malaise, nausea/vomiting, shortness of breath, syncope, weakness - Related Data Previous Rx's Medication Instructions Recorded Last Taken Type Apixaban [Eliquis] 5 mg PO BID #60 tablet 10/08/17 Unknown Rx Metoprolol [Lopressor TAB] 50 mg PO BID #60 tablet 10/08/17 Unknown Rx traMADol [Ultram 50 MG tab] 50 mg PO Q6HR PRN #20 tablet 10/08/17 Unknown Rx Meclizine [Antivert] 25 mg PO TID PRN #40 tablet 02/07/19 Unknown Rx Allergies Allergy/AdvReac Type Severity Reaction Status Date / Time azithromycin [From Zithromax] AdvReac Severe Nausea Verified 09/16/17 08:46 ibuprofen [From Advil] AdvReac Intermediate Nausea Verified 09/16/17 08:46 ED Review of Systems ROS: Stated complaint: LIGHT HEADNESS/DIZZY/CHEST PAIN Other details as noted in HPI Comment: All other systems reviewed and negative ED Past Medical Hx - Past Medical History Hx Hypertension: Yes (2015) Hx Heart Attack/AMI: No Hx Congestive Heart Failure: No Hx Diabetes: No Hx Pulmonary Embolism: Yes (September 2017) Hx GERD: Yes Hx COPD: No Additional medical history: fibroids, Iron deficiency - Surgical History Hx Breast Surgery: Yes (Srinath breast reduction 2008) Additional Surgical History: tubal ligation - Social History Smoking Status: Never Smoker Substance Use Type: Prescribed - Medications Home Medications: Home Medications Medication Instructions Recorded Confirmed Last Taken Type Apixaban [Eliquis] 5 mg PO BID #60 tablet 10/08/17 Unknown Rx Metoprolol [Lopressor TAB] 50 mg PO BID #60 tablet 10/08/17 Unknown Rx traMADol [Ultram 50 MG tab] 50 mg PO Q6HR PRN #20 tablet 10/08/17 Unknown Rx Meclizine [Antivert] 25 mg PO TID PRN #40 tablet 02/07/19 Unknown Rx ED Physical Exam - General Limitations: No Limitations General appearance: alert, in no apparent distress - Head Head exam: Present: atraumatic, normocephalic - Eye Eye exam: Present: normal appearance - ENT ENT exam: Present: mucous membranes moist - Neck Neck exam: Present: normal inspection - Respiratory Respiratory exam: Present: normal lung sounds bilaterally. Absent: respiratory distress - Cardiovascular Cardiovascular Exam: Present: regular rate, normal rhythm. Absent: systolic murmur, diastolic murmur, rubs, gallop - GI/Abdominal GI/Abdominal exam: Present: soft, normal bowel sounds - Extremities Exam Extremities exam: Present: normal inspection - Back Exam Back exam: Present: normal inspection, full ROM. Absent: tenderness - Neurological Exam Neurological exam: Present: alert, oriented X3, normal gait - Expanded Neurological Exam Expanded Patient oriented to: Present: person, place, time Speech: Present: fluid speech Cranial nerves: EOM's Intact: Normal Cerebellar function: Finger to Nose: Normal Motor strength exam: RUE: 5, LUE: 5, RLE: 5, LLE: 5 Best Eye Response (Mcbee): (4) open spontaneously Best Motor Response (Kendra): (6) obeys commands Best Verbal Response (Kendra): (5) oriented Kendra Total: 15 - Psychiatric Psychiatric exam: Present: normal affect, normal mood - Skin Skin exam: Present: warm, dry, intact, normal color. Absent: rash ED Course Vital Signs 02/07/19 15:56 Temperature 98.3 F Pulse Rate 70 Respiratory 20 Rate Blood Pressure 180/90 O2 Sat by Pulse 100 Oximetry ED Medical Decision Making - Radiology Data Radiology results: report reviewed, image reviewed cc: TATY SULTANA CT head without contrast Coronal history: Headache, dizziness FINDINGS: No previous exams available for comparison. The motion degrades image quality at. However, the brain appears to demonstrate appropriate attenuation. The ventricular system is within normal limits in size and configuration. There is no clear CT evidence of acute intracranial hemorrhage or significant mass effect. The visualized paranasal sinuses are clear. IMPRESSION: There is no CT evidence of acute intracranial process. Signer Name: Glenroy Johansen MD Signed: 02/07/2019 6:40 PM Workstation Name: [id number] Transcribed By: MR Dictated By: Glenroy Johansen MD Electronically Authenticated By: Glenroy Johansen MD Signed Date/Time: 02/07/19 1840 - Medical Decision Making 43-year-old female presents with Dizziness is worsened with movement. He has been evaluated here twice in the past. All labs were within normal limits. Patient and reports feeling a little better after nebulization on meclizine in the ED today Discussed the patient denies she most likely has benign positional vertigo due to her symptoms. CT scan was ordered, CT scan shows no acute injury. Discussed findings with the fascia. Discussed with patient that she will be going home on meclizine. Discussed second referral to ENT and to follow up with ENT if vertigo continues. Vital signs are normal. patient is in no acute distress she has no neurological deficit. Critical care attestation.: If time is entered above; I have spent that time in minutes in the direct care of this critically ill patient, excluding procedure time. ED Disposition Clinical Impression: Positional vertigo, Dizziness of unknown etiology Disposition: DC-01 TO HOME OR SELFCARE Is pt being admited?: No Does the pt Need Aspirin: No Condition: Stable Instructions: Vertigo (ED), Dizziness (ED) Additional Instructions: Make sure to follow up with the primary care physician as discussed. Take all your medications as you've been prescribed. If you have any worsening symptoms or develop new symptoms please return to ED immediately. Prescriptions: Meclizine [Antivert] 25 mg PO TID PRN #40 tablet PRN Reason: Vertigo Referrals: ARAM SHAH MD [Primary Care Provider] - 3-5 Days TUAN FONSECA MD [Staff Physician] - 3-5 Days [facility] [Provider Group] - 3-5 Days Forms: Accompanied Note, Work/School Release Form(ED) Time of Disposition: 20:33
[2019-02-07 21:11] VITALS: BP 151/75
== END 2019-02-07 21:09 | disposition home or self-care (01) ==
LOC: ED 15:19
DX: R42 Dizziness and giddiness (principal); I10 Essential (primary) hypertension; K21.9 Gastro-esophageal reflux disease without esophagitis; Z98.890 Other specified postprocedural states; Z98.51 Tubal ligation status; Z88.6 Allergy status to analgesic agent; Z88.1 Allergy status to other antibiotic agents
CPT/HCPCS: 70450

== ENCOUNTER 2019-03-26 07:47 | Emergency (ER) | payer OTHER ==
[2019-03-26] MEDS ORDERED: ASPIRIN 325 MG TAB PO ONE ×2 (08:01→10:53)
[2019-03-26 08:38] LABS: Basophils % (Auto) 0.5 % (0.0-1.8); Eosinophils # (Auto) 0.2 K/mm3 (0.0-0.4); Eosinophils % (Auto) 2.6 % (0.0-4.3); Hematocrit 38.4 % (30.3-42.9); Hemoglobin 12.7 gm/dl (10.1-14.3); Lymphocytes # (Auto) 2.6 K/mm3 (1.2-5.4); Lymphocytes % (Auto) 40.2 % (13.4-35.0); Mean Corpuscular HGB Conc 33 % (30-34); Mean Corpuscular Volume 81 fl (79-97); Monocytes # (Auto) 0.3 K/mm3 (0.0-0.8); Monocytes % (Auto) 5.2 % (0.0-7.3); Platelet Count 227 K/mm3 (140-440); Red Blood Count 4.75 M/mm3 (3.65-5.03); Red Cell Distribution Width 14.9 % (13.2-15.2)
--- NOTE | 2019-03-26 08:40 | Emergency Department Report ---
ED Chest Pain HPI - General Chief Complaint: Dyspnea/Respdistress Stated Complaint: SOB/CP Time Seen by Provider: 03/26/19 08:36 Source: patient Mode of arrival: Ambulatory Limitations: No Limitations - History of Present Illness Initial Comments: 43 yo obese AA female comes to ER with sharp r sided cp associated with sob; off and on for weeks. She has been seen in ER and told she has vertigo. Pt has hx bilat PE diagnosed in 09/2017 for which she took eloquis for almost a year for. She was taken off it by her PCP Dr Clemnet. She denies hormone use, she has sedentary life, no long recent travel, and non smoker. She reports bumping her right leg the other day- but anterior over tib fib- bruise noted. Calf aches at night, right side only. Pt is tachycardic with rate of 110 - on metop 25 mg which she took this AM. Currently on no daily home meds. MD Complaint: chest pain -: days(s) Onset: during rest, during exertion Pain Location: right chest Pain Radiation: none Severity: moderate Quality: sharp Consistency: constant Improves With: nothing Worsens With: nothing re: dyspnea Treatments Prior to Arrival: none Aspirin use within the Past 7 Days: (0) No - Related Data On Oral Contraceptives: No Previous Rx's Medication Instructions Recorded Last Taken Type Apixaban [Eliquis] 5 mg PO BID #60 tablet 10/08/17 Unknown Rx Metoprolol [Lopressor TAB] 50 mg PO BID #60 tablet 10/08/17 Unknown Rx Meclizine [Antivert] 25 mg PO TID PRN #40 tablet 02/07/19 Unknown Rx Allergies Allergy/AdvReac Type Severity Reaction Status Date / Time azithromycin [From Zithromax] AdvReac Severe Nausea Verified 09/16/17 08:46 ibuprofen [From Advil] AdvReac Intermediate Nausea Verified 09/16/17 08:46 Heart Score - HEART Score History: Slightly suspicious EKG: Non-specific Age: < 45 Risk factors: 1-2 risk factors Troponin: < normal limit HEART Score: 2 ED Review of Systems ROS: Stated complaint: SOB/CP Other details as noted in HPI Comment: All other systems reviewed and negative ED Past Medical Hx - Past Medical History Previous Medical History?: Yes Hx Hypertension: Yes (2015) Hx Heart Attack/AMI: No Hx Congestive Heart Failure: No Hx Diabetes: No Hx Pulmonary Embolism: Yes (September 2017) Hx GERD: Yes Hx Liver Disease: No Hx Renal Disease: No Hx of Cancer: No Hx Sickle Cell Disease: No Hx Arthritis: No Hx Headaches / Migraines: No Hx Seizures: No Hx Kidney Stones: No Hx Psychiatric Treatment: No Hx Asthma: No Hx COPD: No Hx Tuberculosis: No Hx HIV: No Additional medical history: fibroids, Iron deficiency - Surgical History Past Surgical History?: Yes Hx Breast Surgery: Yes (Srinath breast reduction 2008) Additional Surgical History: tubal ligation - Social History Smoking Status: Never Smoker Substance Use Type: None - Medications Home Medications: Home Medications Medication Instructions Recorded Confirmed Last Taken Type Apixaban [Eliquis] 5 mg PO BID #60 tablet 10/08/17 Unknown Rx Metoprolol [Lopressor TAB] 50 mg PO BID #60 tablet 10/08/17 Unknown Rx Meclizine [Antivert] 25 mg PO TID PRN #40 tablet 02/07/19 Unknown Rx ED Physical Exam - General Limitations: No Limitations General appearance: alert, in no apparent distress - Head Head exam: Present: atraumatic, normocephalic - Eye Eye exam: Present: normal appearance - ENT ENT exam: Present: mucous membranes moist - Neck Neck exam: Present: normal inspection - Respiratory Respiratory exam: Present: normal lung sounds bilaterally. Absent: respiratory distress - Cardiovascular Cardiovascular Exam: Present: regular rate, normal rhythm. Absent: systolic murmur, diastolic murmur, rubs, gallop - GI/Abdominal GI/Abdominal exam: Present: soft, normal bowel sounds - Extremities Exam Extremities exam: Present: normal inspection - Back Exam Back exam: Present: normal inspection - Neurological Exam Neurological exam: Present: alert, oriented X3 - Psychiatric Psychiatric exam: Present: normal affect, normal mood - Skin Skin exam: Present: warm, dry, intact, normal color. Absent: rash ED Course Vital Signs 03/26/19 03/26/19 03/26/19 07:59 08:45 08:49 Temperature 98.5 F 98.2 F Pulse Rate 108 H 68 68 Respiratory 20 16 17 Rate Blood Pressure 195/86 142/80 Blood Pressure 133/86 [Left] O2 Sat by Pulse 96 98 97 Oximetry - Reevaluation(s) Reevaluation #1: 03/26/19 11:28 PT UPDATED ON TEST RESULTS HR 62 on exam CHARLIE score - Charlie Score Age > 65: (0) No Aspirin use within the Past 7 Days: (0) No 3 or more CAD Risk Factors: (0) No 2 or more Angina events in past 24 hrs: (0) No Known CAD with more than 50% Stenosis: (0) No Elevated Cardiac Markers: (0) No ST Deviation Greater than 0.5mm: (0) No CHARLIE Score: 0 ED Medical Decision Making - Lab Data Result diagrams: 03/26/19 08:11 03/26/19 08:11 - EKG Data -: EKG Interpreted by [place] EKG shows normal: sinus rhythm Rate: normal - EKG Data Interpretation: nonspecific ST-T wave mohit - Radiology Data Radiology results: report reviewed, image reviewed - Medical Decision Making Lab Results 03/26/19 03/26/19 Range/Units 08:11 08:11 WBC 6.6 (4.5-11.0) K/mm3 RBC 4.75 (3.65-5.03) M/mm3 Hgb 12.7 (10.1-14.3) gm/dl Hct 38.4 (30.3-42.9) % MCV 81 (79-97) fl MCH 27 L (28-32) pg MCHC 33 (30-34) % RDW 14.9 (13.2-15.2) % Plt Count 227 (140-440) K/mm3 Lymph % (Auto) 40.2 H (13.4-35.0) % [place] % (Auto) 5.2 (0.0-7.3) % Eos % (Auto) 2.6 (0.0-4.3) % Baso % (Auto) 0.5 (0.0-1.8) % Lymph # 2.6 (1.2-5.4) K/mm3 [place] # 0.3 (0.0-0.8) K/mm3 Eos # 0.2 (0.0-0.4) K/mm3 Baso # 0.0 (0.0-0.1) K/mm3 Seg Neutrophils % 51.5 (40.0-70.0) % Seg Neutrophils # 3.4 (1.8-7.7) K/mm3 Sodium 140 (137-145) mmol/L Potassium 3.7 (3.6-5.0) mmol/L Chloride 106.0 (98-107) mmol/L Carbon Dioxide 22 (22-30) mmol/L Anion Gap 16 mmol/L BUN 12 (7-17) mg/dL Creatinine 0.8 (0.7-1.2) mg/dL Estimated GFR > 60 ml/min BUN/Creatinine Ratio 15 % Glucose 118 H (65-100) mg/dL Calcium 8.8 (8.4-10.2) mg/dL Troponin T < 0.010 (0.00-0.029) ng/mL Vital Signs 03/26/19 03/26/19 03/26/19 07:59 08:45 08:49 Temperature 98.5 F 98.2 F Pulse Rate 108 H 68 68 Respiratory 20 16 17 Rate Blood Pressure 195/86 142/80 Blood Pressure 133/86 [Left] O2 Sat by Pulse 96 98 97 Oximetry us RLE neg for dvt [address] with no RV strain; normal axis trop neg xray noted labs noted 1043 CTA results pending 1125 CT noted dc home with pcp follow up. 1130 no cp or sob. pt reassured - Differential Diagnosis ro vte Critical care attestation.: If time is entered above; I have spent that time in minutes in the direct care of this critically ill patient, excluding procedure time. ED Disposition Clinical Impression: Obesity, Chest wall pain Disposition: DC-01 TO HOME OR SELFCARE Is pt being admited?: No Does the pt Need Aspirin: No Condition: Stable Instructions: Chest Pain (ED) Additional Instructions: follow up with pcp continue home medications NEG DVT AND NEG PE TODAY Referrals: PRIMARY CAREMD [Primary Care Provider] - 3-5 Days Time of Disposition: 10:44
[2019-03-26 09:00] LABS: BUN/Creatinine Ratio 15; Blood Urea Nitrogen 12 mg/dL (7-17); Calcium 8.8 mg/dL (8.4-10.2); Hemolysis Index 0
--- NOTE | 2019-03-26 09:50 | Vascular Lab Report ---
DUPLEX DOPPLER LOWER EXTREMITY VEINS, RIGHT INDICATION: Right calf pain since yesterday. History of PE, morbid obesity, hypertension. TECHNIQUE: Duplex doppler imaging was performed through the veins of the right lower extremity using venous compression and other maneuvers. COMPARISON: 10/05/2017 FINDINGS: Right Common femoral vein: Negative. Right Superficial femoral vein: Negative. Right Popliteal vein: Negative. Right Calf veins: Negative. Additional findings: None.. IMPRESSION: No sonographic evidence for DVT in the right lower extremity. Thank you for the opportunity to participate in this patient's care. Signer Name: El Melo Signed: 03/26/2019 9:45 AM Workstation Name: [id number]
--- NOTE | 2019-03-26 10:05 | XRay Report ---
CHEST 1 VIEW 03/26/2019 8:41 AM INDICATION / CLINICAL INFORMATION: Chest Pain. COMPARISON: 01/10/19 FINDINGS: SUPPORT DEVICES: None. HEART / MEDIASTINUM: No significant abnormality. LUNGS / PLEURA: No significant pulmonary or pleural abnormality. Mild elevation of the right hemidiap hragm is unchanged. No pneumothorax. ADDITIONAL FINDINGS: No significant additional findings. IMPRESSION: 1. No acute findings. No change. Signer Name: Иван Benton MD Signed: 03/26/2019 10:01 AM Workstation Name: [id number]
[2019-03-26] MEDS ORDERED: ASPIRIN 325 MG TAB ONE (10:58)
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
[2019-03-26 12:02] VITALS: BP 138/87
== END 2019-03-26 11:56 | disposition home or self-care (01) ==
LOC: ED 07:47
DX: R07.89 Other chest pain (principal); E66.9 Obesity, unspecified; I10 Essential (primary) hypertension; K21.9 Gastro-esophageal reflux disease without esophagitis
CPT/HCPCS: 36415; 71045; 71275; 80048; 84484; 85025; 93005; 93010; 93971; 99285; Q9967

== ENCOUNTER 2019-06-23 18:48 | Emergency (ER) | payer OTHER ==
--- NOTE | 2019-06-23 19:25 | Emergency Department Report ---
Blank Doc - Documentation Documentation: 43-year-old female that presents with dizziness and feeling shaky. This initial assessment/diagnostic orders/clinical plan/treatment(s) is/are subject to change based on patient's health status, clinical progression and re- assessment by fellow clinical providers in the ED. Further treatment and workup at subsequent clinical providers discretion. Patient/guardians urged not to elope from the ED as their condition may be serious if not clinically assessed and managed. Initial orders include: 1- Patient sent to [facility] for further evaluation and treatment 2- labs 3- UA
[2019-06-23 19:34] VITALS: BP 163/82
[2019-06-23 19:46] LABS: Basophils % (Auto) 0.6 % (0.0-1.8); Eosinophils # (Auto) 0.4 K/mm3 (0.0-0.4); Eosinophils % (Auto) 4.2 % (0.0-4.3); Hematocrit 39.6 % (30.3-42.9); Hemoglobin 12.8 gm/dl (10.1-14.3); Lymphocytes # (Auto) 3.4 K/mm3 (1.2-5.4); Lymphocytes % (Auto) 40.1 % (13.4-35.0); Mean Corpuscular HGB Conc 32 % (30-34); Mean Corpuscular Volume 79 fl (79-97); Monocytes # (Auto) 0.5 K/mm3 (0.0-0.8); Monocytes % (Auto) 6.1 % (0.0-7.3); Platelet Count 270 K/mm3 (140-440); Red Blood Count 4.99 M/mm3 (3.65-5.03); Red Cell Distribution Width 15.3 % (13.2-15.2)
[2019-06-23 20:06] LABS: BUN/Creatinine Ratio 20; Blood Urea Nitrogen 18 mg/dL (7-17); Calcium 9.5 mg/dL (8.4-10.2); Hemolysis Index 3
--- NOTE | 2019-06-23 21:11 | Emergency Department Report ---
ED Dizziness HPI - General Chief Complaint: Dizziness Stated Complaint: DIZZY & TREMBLES Time Seen by Provider: 06/23/19 19:24 Source: family Mode of arrival: Wheelchair Limitations: No Limitations - History of Present Illness Initial Comments: 43-year-old -[place] female with history of hypertension since with complaints of intermittent dizziness 5 months. Patient states she was seen here for similar symptoms 01/2019 and diagnosed with vertigo. States she has followed up with cardiology her primary care provider but has not followed up [facility] ENT as recommended. She describes the dizziness as room spinning and lightheadedness states her symptoms do resolve with meclizine. Patient also complains of left sided sinus pain and pressure since the onset of her dizziness 5 months ago. She denies any fever/chills/sweats, cough, decreased hearing. She admits to ringing in her left ear and pressure in her left ear. Patient states Clarmphoria is not working for her symptoms currently. Patient also denies any new leg swelling, shortness of breath, chest pain, vision changes, headache, numbness/tingling/weakness in her limbs, recent long travel, hormone use, hemoptysis, recent surgery, or smoking. He does have history of PE in 2018 and is no longer on Eliquis. - Related Data Previous Rx's Medication Instructions Recorded Last Taken Type Apixaban [Eliquis] 5 mg PO BID #60 tablet 10/08/17 Unknown Rx Metoprolol [Lopressor TAB] 50 mg PO BID #60 tablet 10/08/17 Unknown Rx Meclizine [Antivert] 25 mg PO TID PRN #40 tablet 02/07/19 Unknown Rx Amoxicillin/Potassium Clav 1 each PO BID 10 Days #20 tablet 06/23/19 Unknown Rx [Augmentin 875-125 Tablet] Fluconazole [Diflucan TAB] 150 mg PO QDAY 2 Days #2 tablet 06/23/19 Unknown Rx Levocetirizine Dihydrochloride 5 mg PO QHS 20 Days #20 tablet 06/23/19 Unknown Rx [Xyzal] predniSONE [Deltasone] 20 mg PO TID #9 tab 06/23/19 Unknown Rx Allergies Allergy/AdvReac Type Severity Reaction Status Date / Time azithromycin [From Zithromax] AdvReac Severe Nausea Verified 09/16/17 08:46 ibuprofen [From Advil] AdvReac Intermediate Nausea Verified 09/16/17 08:46 ED Review of Systems ROS: Stated complaint: DIZZY & TREMBLES Other details as noted in HPI Constitutional: denies: chills, diaphoresis, fever, malaise, weakness Eyes: denies: eye pain, eye discharge ENT: congestion (nasal). denies: ear pain, throat pain Respiratory: denies: cough, orthopnea, shortness of breath, SOB with exertion, SOB at rest Cardiovascular: denies: chest pain, palpitations, dyspnea on exertion, edema, syncope Gastrointestinal: denies: abdominal pain, nausea, vomiting, diarrhea, constipation Genitourinary: denies: urgency, dysuria, frequency, hematuria Musculoskeletal: denies: back pain, joint swelling Skin: denies: rash, lesions Neurological: vertigo. denies: headache, weakness, numbness, paresthesias, co nfusion, abnormal gait Psychiatric: denies: auditory hallucinations, visual hallucinations Hematological/Lymphatic: as per HPI ED Past Medical Hx - Past Medical History Previous Medical History?: Yes Hx Hypertension: Yes (2015) Hx Heart Attack/AMI: No Hx Congestive Heart Failure: No Hx Diabetes: No Hx Pulmonary Embolism: Yes (September 2017) Hx GERD: Yes Hx Liver Disease: No Hx Renal Disease: No Hx Sickle Cell Disease: No Hx Arthritis: No Hx Headaches / Migraines: No Hx Seizures: No Hx Kidney Stones: No Hx Psychiatric Treatment: No Hx Asthma: No Hx COPD: No Hx Tuberculosis: No Hx HIV: No Additional medical history: fibroids, Iron deficiency - Surgical History Past Surgical History?: Yes Hx Breast Surgery: Yes (Srinath breast reduction 2008) Additional Surgical History: tubal ligation - Social History Smoking Status: Never Smoker Substance Use Type: None - Medications Home Medications: Home Medications Medication Instructions Recorded Confirmed Last Taken Type Apixaban [Eliquis] 5 mg PO BID #60 tablet 10/08/17 Unknown Rx Metoprolol [Lopressor TAB] 50 mg PO BID #60 tablet 10/08/17 Unknown Rx Meclizine [Antivert] 25 mg PO TID PRN #40 tablet 02/07/19 Unknown Rx Amoxicillin/Potassium Clav 1 each PO BID 10 Days #20 tablet 06/23/19 Unknown Rx [Augmentin 875-125 Tablet] Fluconazole [Diflucan TAB] 150 mg PO QDAY 2 Days #2 tablet 06/23/19 Unknown Rx Levocetirizine Dihydrochloride 5 mg PO QHS 20 Days #20 tablet 06/23/19 Unknown Rx [Xyzal] predniSONE [Deltasone] 20 mg PO TID #9 tab 06/23/19 Unknown Rx ED Physical Exam - General Limitations: No Limitations General appearance: alert, in no apparent distress - Head Head exam: Present: atraumatic, normocephalic - Eye Eye exam: Present: normal appearance, PERRL. Absent: EOMI, scleral icterus - ENT ENT exam: Present: normal exam, normal orophraynx, other (tenderness to palpation noted over left maxillary sinus) - Expanded ENT Exam Expanded Ear exam: Present: normal external inspection, other (normal exam of left ear canal and tympanic membrane) - Neck Neck exam: Present: normal inspection, full ROM. Absent: tenderness - Respiratory Respiratory exam: Present: normal lung sounds bilaterally. Absent: respiratory distress - Cardiovascular Cardiovascular Exam: Present: regular rate, normal rhythm. Absent: systolic murmur, diastolic murmur, rubs, gallop - Extremities Exam Extremities exam: Present: normal inspection, full ROM, pedal edema (minijmal bilateral-pt states chronic since 2018). Absent: tenderness, calf tenderness - Neurological Exam Neurological exam: Present: alert, oriented X3, CN II-XII intact, normal gait. Absent: motor sensory deficit - Expanded Neurological Exam Expanded Cerebellar function: Finger to Nose: Normal, Heel to Morales: Normal, Romberg: Normal Sensory exam: Upper Extremity Light Touch: Normal, Lower Extremity Light Touch: Normal Motor strength exam: RUE: 5, LUE: 5, RLE: 5, LLE: 5 - Psychiatric Psychiatric exam: Present: normal affect, normal mood - Skin Skin exam: Present: warm, dry, intact, normal color. Absent: rash ED Course Vital Signs 06/23/19 06/23/19 19:33 22:50 Temperature 98 F Pulse Rate 79 80 Respiratory 18 17 Rate Blood Pressure 163/82 O2 Sat by Pulse 100 100 Oximetry ED Medical Decision Making - Lab Data Result diagrams: 06/23/19 19:32 06/23/19 19:32 Lab Results 06/23/19 06/23/19 06/23/19 Range/Units 19:32 19:32 19:32 WBC 8.4 (4.5-11.0) K/mm3 RBC 4.99 (3.65-5.03) M/mm3 Hgb 12.8 (10.1-14.3) gm/dl Hct 39.6 (30.3-42.9) % MCV 79 (79-97) fl MCH 26 L (28-32) pg MCHC 32 (30-34) % RDW 15.3 H (13.2-15.2) % Plt Count 270 (140-440) K/mm3 Lymph % (Auto) 40.1 H (13.4-35.0) % Mccone % (Auto) 6.1 (0.0-7.3) % Eos % (Auto) 4.2 (0.0-4.3) % Baso % (Auto) 0.6 (0.0-1.8) % Lymph # 3.4 (1.2-5.4) K/mm3 Mccone # 0.5 (0.0-0.8) K/mm3 Eos # 0.4 (0.0-0.4) K/mm3 Baso # 0.0 (0.0-0.1) K/mm3 Seg Neutrophils % 49.0 (40.0-70.0) % Seg Neutrophils # 4.1 (1.8-7.7) K/mm3 Sodium 140 (137-145) mmol/L Potassium 3.9 (3.6-5.0) mmol/L Chloride 104.6 (98-107) mmol/L Carbon Dioxide 23 (22-30) mmol/L Anion Gap 16 mmol/L BUN 18 H (7-17) mg/dL Creatinine 0.9 (0.7-1.2) mg/dL Estimated GFR > 60 ml/min BUN/Creatinine Ratio 20 % Glucose 105 H (65-100) mg/dL Calcium 9.5 (8.4-10.2) mg/dL Troponin T (0.00-0.029) ng/mL HCG, Qual Negative (Negative) Urine Color (Yellow) Urine Turbidity (Clear) Urine pH (5.0-7.0) Ur Specific [place] (1.003-1.030) Urine Protein (Negative) mg/dL Urine Glucose (UA) (Negative) mg/dL Urine Ketones (Negative) mg/dL Urine Blood (Negative) Urine Nitrite (Negative) Urine Bilirubin (Negative) Urine Urobilinogen (<2.0) mg/dL Ur Leukocyte Esterase (Negative) Urine WBC (Auto) (0.0-6.0) /HPF Urine RBC (Auto) (0.0-6.0) /HPF U Epithel Cells (Auto) (0-13.0) /HPF Urine Mucus /HPF 06/23/19 06/23/19 Range/Units 19:32 Unknown WBC (4.5-11.0) K/mm3 RBC (3.65-5.03) M/mm3 Hgb (10.1-14.3) gm/dl Hct (30.3-42.9) % MCV (79-97) fl MCH (28-32) pg MCHC (30-34) % RDW (13.2-15.2) % Plt Count (140-440) K/mm3 Lymph % (Auto) (13.4-35.0) % Mccone % (Auto) (0.0-7.3) % Eos % (Auto) (0.0-4.3) % Baso % (Auto) (0.0-1.8) % Lymph # (1.2-5.4) K/mm3 Mccone # (0.0-0.8) K/mm3 Eos # (0.0-0.4) K/mm3 Baso # (0.0-0.1) K/mm3 Seg Neutrophils % (40.0-70.0) % Seg Neutrophils # (1.8-7.7) K/mm3 Sodium (137-145) mmol/L Potassium (3.6-5.0) mmol/L Chloride (98-107) mmol/L Carbon Dioxide (22-30) mmol/L Anion Gap mmol/L BUN (7-17) mg/dL Creatinine (0.7-1.2) mg/dL Estimated GFR ml/min BUN/Creatinine Ratio % Glucose (65-100) mg/dL Calcium (8.4-10.2) mg/dL Troponin T < 0.010 (0.00-0.029) ng/mL HCG, Qual (Negative) Urine Color Yellow (Yellow) Urine Turbidity Slightly-cloudy (Clear) Urine pH 5.0 (5.0-7.0) Ur Specific [place] 1.020 (1.003-1.030) Urine Protein <15 mg/dl (Negative) mg/dL Urine Glucose (UA) Neg (Negative) mg/dL Urine Ketones Tr (Negative) mg/dL Urine Blood Neg (Negative) Urine Nitrite Neg (Negative) Urine Bilirubin Neg (Negative) Urine Urobilinogen < 2.0 (<2.0) mg/dL Ur Leukocyte Esterase Neg (Negative) Urine WBC (Auto) 4.0 (0.0-6.0) /HPF Urine RBC (Auto) 3.0 (0.0-6.0) /HPF U Epithel Cells (Auto) 3.0 (0-13.0) /HPF Urine Mucus Few /HPF - EKG Data EKG shows normal: sinus rhythm Rate: normal - Radiology Data Radiology results: report reviewed - Medical Decision Making 43-year-old -[place] female with history of hypertension since with complaints of intermittent dizziness 5 months. Patient was diagnosed with vertigo during her visit here at the ED 01/2019. Patient's symptoms do resolve with oral meclizine. Patient has not followed up with the ENT specialist as recommended. Neuro exam is normal. Patient has left maxillary sinus tenderness on exam. Patient also states dizziness does resolved with meclizine. He is nontoxic appearing and stable for discharge home. Willk treat for sinusitis with Augmentin and steroids. Discussed in detail importance of follow-up with the ENT specialist and patient provided with ENT specialist information. Discussed strict return precautions in great detail with patient who verbalizes understanding. Critical care attestation.: If time is entered above; I have spent that time in minutes in the direct care of this critically ill patient, excluding procedure time. ED Disposition Clinical Impression: Vertigo, benign positional Qualifiers: Laterality: left Qualified Code(s): H81.12 - Benign paroxysmal vertigo, left ear Disposition: DC-01 TO HOME OR SELFCARE Is pt being admited?: No Condition: Stable Instructions: Sinusitis (ED), Vertigo (ED) Prescriptions: Levocetirizine Dihydrochloride [Xyzal] 5 mg PO QHS 20 Days #20 tablet Amoxicillin/Potassium Clav [Augmentin 875-125 Tablet] 1 each PO BID 10 Days #20 tablet predniSONE [Deltasone] 20 mg PO TID #9 tab Fluconazole [Diflucan TAB] 150 mg PO QDAY 2 Days #2 tablet Referrals: TUAN FONSECA MD [Staff Physician] - 3-5 Days Forms: Accompanied Note, Work/School Release Form(ED)
[2019-06-23 21:57] LABS: Bilirubin,Urine NEG (Negative); Blood,Urine NEG (Negative); Color,Urine Yellow (Yellow); Mucus,Urine FEW /HPF; Protein,Urine <15 mg/dL mg/dL (Negative); Urobilinogen,Urine < 2.0 mg/dL (<2.0)
== END 2019-06-23 22:50 | disposition home or self-care (01) ==
LOC: ED 18:48
DX: H81.10 Benign paroxysmal vertigo, unspecified ear (principal); I10 Essential (primary) hypertension; K21.9 Gastro-esophageal reflux disease without esophagitis; Z98.51 Tubal ligation status; Z79.899 Other long term (current) drug therapy; Z98.890 Other specified postprocedural states; Z88.1 Allergy status to other antibiotic agents; Z88.6 Allergy status to analgesic agent
CPT/HCPCS: 36415; 80048; 81001; 84484; 84703; 85025; 93005; 93010

== ENCOUNTER 2019-07-20 18:40 | Emergency (ER) | payer OTHER ==
--- NOTE | 2019-07-20 20:31 | Event Note ---
ED Screening Note Date of service: 07/20/19 Time: 20:28 ED Screening Note: 43 y o female presents for dizziness x today prior to leaving work has seen cardio , pulmon and ENT no relief with meclizine Feels like head feels heavy and lightheaded This initial assessment/diagnostic orders/clinical plan/treatment(s) is/are subject to change based on patients health status, clinical progression and re- assessment by fellow clinical providers in the ED. Further treatment and workup at subsequent clinical providers discretion. Patient/guardian urged not to elope from the ED as their condition may be serious if not clinically assessed and managed. Initial orders include: labs
[2019-07-20 22:00] LABS: Basophils % (Auto) 0.4 % (0.0-1.8); Eosinophils # (Auto) 0.3 K/mm3 (0.0-0.4); Eosinophils % (Auto) 3.1 % (0.0-4.3); Hematocrit 38.2 % (30.3-42.9); Hemoglobin 12.3 gm/dl (10.1-14.3); Lymphocytes % (Auto) 35.8 % (13.4-35.0); Mean Corpuscular HGB Conc 32 % (30-34); Mean Corpuscular Volume 79 fl (79-97); Monocytes # (Auto) 0.3 K/mm3 (0.0-0.8); Monocytes % (Auto) 4.2 % (0.0-7.3); Platelet Count 242 K/mm3 (140-440); Red Blood Count 4.83 M/mm3 (3.65-5.03); Red Cell Distribution Width 15.7 % (13.2-15.2)
[2019-07-20 22:18] LABS: Alanine Aminotransferase 14 units/L (7-56); Albumin 4.4 g/dL (3.9-5); BUN/Creatinine Ratio 19; Blood Urea Nitrogen 15 mg/dL (7-17); Calcium 9.4 mg/dL (8.4-10.2); Hemolysis Index 8
--- NOTE | 2019-07-20 23:25 | Emergency Department Report ---
ED Chest Pain HPI - General Chief Complaint: Chest Pain Stated Complaint: DIZZY/LIGHT HEADED/CHEST PAIN Time Seen by Provider: 07/20/19 23:13 Source: patient Mode of arrival: Ambulatory Limitations: No Limitations - History of Present Illness Initial Comments: Patient is 43 years old female, morbidly obese, history of bilateral PE. Patient presented to the ER complaining of right sided chest pain started this afternoon. Patient described her pain as sharp, increased with inspiration. Pain associated with shortness of breath. Patient denied any fever, chills, cough, nausea or vomiting. No left-sided chest pain. Patient is also complaining of left lower extremity swelling and pain for the last 2 days. MD Complaint: chest pain - Related Data Previous Rx's Medication Instructions Recorded Last Taken Type Apixaban [Eliquis] 5 mg PO BID #60 tablet 10/08/17 Unknown Rx Metoprolol [Lopressor TAB] 50 mg PO BID #60 tablet 10/08/17 Unknown Rx Meclizine [Antivert] 25 mg PO TID PRN #40 tablet 02/07/19 Unknown Rx Amoxicillin/Potassium Clav 1 each PO BID 10 Days #20 tablet 06/23/19 Unknown Rx [Augmentin 875-125 Tablet] Fluconazole [Diflucan TAB] 150 mg PO QDAY 2 Days #2 tablet 06/23/19 Unknown Rx Levocetirizine Dihydrochloride 5 mg PO QHS 20 Days #20 tablet 06/23/19 Unknown Rx [Xyzal] predniSONE [Deltasone] 20 mg PO TID #9 tab 06/23/19 Unknown Rx Allergies Allergy/AdvReac Type Severity Reaction Status Date / Time azithromycin [From Zithromax] AdvReac Severe Nausea Verified 09/16/17 08:46 ibuprofen [From Advil] AdvReac Intermediate Nausea Verified 09/16/17 08:46 Heart Score - HEART Score History: Slightly suspicious EKG: Normal Age: < 45 Risk factors: 1-2 risk factors Troponin: < normal limit HEART Score: 1 - Critical Actions Critical Actions: 0-3 pts:0.9-1.7%risk of adverse cardiac event.Candidate for discharge ED Review of Systems ROS: Stated complaint: DIZZY/LIGHT HEADED/CHEST PAIN Other details as noted in HPI Comment: All other systems reviewed and negative Constitutional: denies: chills, fever Respiratory: shortness of breath. denies: cough, orthopnea, wheezing Cardiovascular: chest pain Gastrointestinal: denies: abdominal pain, nausea Musculoskeletal: denies: back pain ED Past Medical Hx - Past Medical History Previous Medical History?: Yes Hx Hypertension: Yes (2015) Hx Heart Attack/AMI: No Hx Congestive Heart Failure: No Hx Diabetes: No Hx Pulmonary Embolism: Yes (September 2017) Hx GERD: Yes Hx Liver Disease: No Hx Renal Disease: No Hx Sickle Cell Disease: No Hx Arthritis: No Hx Headaches / Migraines: No Hx Seizures: No Hx Kidney Stones: No Hx Psychiatric Treatment: No Hx Asthma: No Hx COPD: No Hx Tuberculosis: No Hx HIV: No Additional medical history: fibroids. Iron deficiency. vertigo. thyroid - Surgical History Past Surgical History?: Yes Hx Breast Surgery: Yes (Srinath breast reduction 2008) Additional Surgical History: tubal ligation - Social History Smoking Status: Never Smoker - Medications Home Medications: Home Medications Medication Instructions Recorded Confirmed Last Taken Type Apixaban [Eliquis] 5 mg PO BID #60 tablet 10/08/17 Unknown Rx Metoprolol [Lopressor TAB] 50 mg PO BID #60 tablet 10/08/17 Unknown Rx Meclizine [Antivert] 25 mg PO TID PRN #40 tablet 02/07/19 Unknown Rx Amoxicillin/Potassium Clav 1 each PO BID 10 Days #20 tablet 06/23/19 Unknown Rx [Augmentin 875-125 Tablet] Fluconazole [Diflucan TAB] 150 mg PO QDAY 2 Days #2 tablet 06/23/19 Unknown Rx Levocetirizine Dihydrochloride 5 mg PO QHS 20 Days #20 tablet 06/23/19 Unknown Rx [Xyzal] predniSONE [Deltasone] 20 mg PO TID #9 tab 06/23/19 Unknown Rx ED Physical Exam - General Limitations: No Limitations General appearance: alert, in no apparent distress - Head Head exam: Present: atraumatic, normocephalic, normal inspection - Eye Eye exam: Present: normal appearance - ENT ENT exam: Present: normal exam, normal orophraynx, mucous membranes moist - Neck Neck exam: Present: normal inspection, full ROM. Absent: tenderness, meningismus, lymphadenopathy, thyromegaly - Respiratory Respiratory exam: Present: normal lung sounds bilaterally - Cardiovascular Cardiovascular Exam: Present: regular rate, normal rhythm, normal heart sounds - GI/Abdominal GI/Abdominal exam: Present: soft, normal bowel sounds. Absent: distended, tenderness, guarding, rebound, rigid, organomegaly, mass, bruit, pulsatile mass, hernia - Extremities Exam Extremities exam: Present: normal inspection, full ROM, normal capillary refill. Absent: pedal edema, calf tenderness - Back Exam Back exam: Present: normal inspection, full ROM. Absent: CVA tenderness (R), CVA tenderness (L) - Neurological Exam Neurological exam: Present: alert, oriented X3, CN II-XII intact - Psychiatric Psychiatric exam: Present: normal mood - Skin Skin exam: Present: warm, intact, normal color ED Course Vital Signs 07/20/19 07/20/19 07/20/19 20:27 23:24 23:30 Temperature 98.3 F Pulse Rate 86 83 75 Respiratory 18 15 16 Rate Blood Pressure 140/71 138/62 O2 Sat by Pulse 98 100 100 Oximetry 07/20/19 07/21/19 07/21/19 23:46 00:00 00:12 Temperature Pulse Rate 78 68 73 Respiratory 14 16 13 Rate Blood Pressure 138/62 138/62 O2 Sat by Pulse 99 99 99 Oximetry 07/21/19 07/21/19 07/21/19 00:16 00:30 00:46 Temperature Pulse Rate 78 81 89 Respiratory 13 13 15 Rate Blood Pressure 138/62 138/62 138/62 O2 Sat by Pulse 99 98 98 Oximetry CHARLIE score - Charlie Score Age > 65: (0) No Aspirin use within the Past 7 Days: (0) No 3 or more CAD Risk Factors: (0) No 2 or more Angina events in past 24 hrs: (0) No Known CAD with more than 50% Stenosis: (0) No Elevated Cardiac Markers: (0) No ST Deviation Greater than 0.5mm: (0) No CHARLIE Score: 0 ED Medical Decision Making - Lab Data Result diagrams: 07/20/19 21:21 07/20/19 21:21 - EKG Data -: EKG Interpreted by Me EKG shows normal: sinus rhythm Rate: normal - EKG Data Interpretation: no acute changes - Radiology Data Radiology results: report reviewed - Medical Decision Making Patient is 43 years old female, morbidly obese, history of bilateral PE. Patient presented to the ER complaining of right sided chest pain started this afternoon. Patient described her pain as sharp, increased with inspiration. Pain associated with shortness of breath. Patient denied any fever, chills, cough, nausea or vomiting. No left-sided chest pain. Patient is also complaining of left lower extremity swelling and pain for the last 2 days. Patient remained stable in the ER. Labs reviewed and is unremarkable. CTA chest is negative for pulmonary embolism or any acute pathology. Doppler ultrasound left lower extremity is negative for DVT. Patient given prescription for Antivert and advised to follow-up with her ENT as scheduled. Critical care attestation.: If time is entered above; I have spent that time in minutes in the direct care of this critically ill patient, excluding procedure time. ED Disposition Clinical Impression: Chest pain, Vertigo Disposition: DC-01 TO HOME OR SELFCARE Is pt being admited?: No Condition: Stable Instructions: Chest Pain (ED) Referrals: BOBY LYNN MD [Primary Care Provider] - 3-5 Days Forms: Work/School Release Form(ED)
--- NOTE | 2019-07-21 02:01 | Cat Scan Report ---
CTA CHEST WITH IV CONTRAST INDICATION: P.E. PROTOCOL!!! Chest pain with S.O.B., possible P.E.. TECHNIQUE: Axial CT images were obtained through the chest after injection of IV contrast. 3 plane MIP reconstru ctions were produced. All CT scans at this location are performed using CT dose reduction for ALARA b y means of automated exposure control. COMPARISON: CT 03/26/2019 FINDINGS: Pulmonary Arteries: No pulmonary emboli. Thoracic Aorta: No acute abnormality. Heart: Normal. Lungs: No acute air space or interstitial disease. Pleura: No pleural effusion. No pneumothorax. Lymph Nodes: No significant adenopathy. Additional Findings: The thyroid is mildly enlarged. Elevation of the right hemidiaphragm is again no [place], unchanged. Upper Abdomen: No acute findings. Skeletal Structures: No significant osseous abnormality. IMPRESSION: 1. No CT evidence for pulmonary embolism. 2. No acute findings. 3. Incidental findings as above. Signer Name: Dennys Noguera MD Signed: 07/21/2019 1:57 AM Workstation Name: [id number]
[2019-07-21 02:32] VITALS: BP 130/72
--- NOTE | 2019-07-21 02:39 | Vascular Lab Report ---
DUPLEX DOPPLER LOWER EXTREMITY VEINS, LEFT INDICATION: Left lower extremity swelling and pain.. TECHNIQUE: Duplex doppler imaging was performed through the veins of the left lower extremity using venous compr ession and other maneuvers. COMPARISON: None available. FINDINGS: Common Femoral vein: Negative. Superficial Femoral vein: Negative. Popliteal vein: Negative. Calf veins: Negative. Additional findings: None. IMPRESSION: 1. No sonographic evidence for DVT in the left lower extremity. Signer Name: Dennys Noguera MD Signed: 07/21/2019 2:34 AM Workstation Name: [id number]
== END 2019-07-21 02:39 | disposition home or self-care (01) ==
LOC: ED 18:40
DX: R07.89 Other chest pain (principal); R06.02 Shortness of breath; R22.42 Localized swelling, mass and lump, left lower limb; R42 Dizziness and giddiness; I10 Essential (primary) hypertension; I25.2 Old myocardial infarction; Z98.51 Tubal ligation status; Z98.890 Other specified postprocedural states; Z86.711 Personal history of pulmonary embolism; Z88.1 Allergy status to other antibiotic agents; Z88.6 Allergy status to analgesic agent; Z79.01 Long term (current) use of anticoagulants; Z79.899 Other long term (current) drug therapy
CPT/HCPCS: 36415; 71275; 80053; 85025; 93005; 93010; 93971; 99284; Q9967

== ENCOUNTER 2020-10-18 15:44 | Emergency (ER) | payer OTHER ==
--- NOTE | 2020-10-18 17:15 | Event Note ---
ED Screening Note Date of service: 10/18/20 Time: 17:13 ED Screening Note: Patient presents to the ER today with complaints of left calf pain for the past 3 to 4 days. She also reports chest pain intermittently for about 1 week described as a burning pain. She states that it feels like heartburn but she is not quite sure. She also reports shortness of breath mainly on exertion. Patient reports a history of PE back in 2018, but she is not currently on any anticoagulants she has been off anticoagulants for about a year. Other significant past medical history include hypertension, mild asthma, allergy and obesity. This initial assessment/diagnostic orders/clinical plan/treatment(s) is/are subject to change based on patients health status, clinical progression and re- assessment by fellow clinical providers in the ED. Further treatment and workup at subsequent clinical providers discretion. Patient/guardian urged not to elope from the ED as their condition may be serious if not clinically assessed and managed. Initial orders include: Chest Pain order set including chest x-ray/CTA and venous Doppler
[2020-10-18 17:42] LABS: Basophils % (Auto) 0.5 % (0.0-1.8); Eosinophils # (Auto) 0.2 K/mm3 (0.0-0.4); Hematocrit 34.4 % (30.3-42.9); Hemoglobin 11.2 gm/dl (10.1-14.3); Lymphocytes # (Auto) 2.8 K/mm3 (1.2-5.4); Lymphocytes % (Auto) 33.4 % (13.4-35.0); Mean Corpuscular HGB Conc 33 % (30-34); Mean Corpuscular Volume 75 fl (79-97); Monocytes # (Auto) 0.6 K/mm3 (0.0-0.8); Monocytes % (Auto) 6.8 % (0.0-7.3); Platelet Count 260 K/mm3 (140-440); Red Blood Count 4.57 M/mm3 (3.65-5.03); Red Cell Distribution Width 17.2 % (13.2-15.2)
--- NOTE | 2020-10-18 17:45 | XRay Report ---
CHEST 2 VIEWS INDICATION / CLINICAL INFORMATION: Chest Pain. COMPARISON: CTA chest on 07/20/2019 FINDINGS: SUPPORT DEVICES: None. HEART / MEDIASTINUM: No significant abnormality. LUNGS / PLEURA: No significant pulmonary or pleural abnormality. No pneumothorax. ADDITIONAL FINDINGS: No significant additional findings. IMPRESSION: 1. No acute findings. Signer Name: Uriel Haq MD Signed: 10/18/2020 5:40 PM Workstation Name: [id number]
[2020-10-18 18:06] LABS: Alanine Aminotransferase 10 units/L (7-56); Albumin 4.3 g/dL (3.9-5); BUN/Creatinine Ratio 17; Blood Urea Nitrogen 15 mg/dL (7-17); Hemolysis Index 5
[2020-10-18 18:08] LABS: INR 1.03 (0.87-1.13)
[2020-10-18 18:09] LABS: Partial Thromboplastin Time 27.4 Sec. (24.2-36.6)
--- NOTE | 2020-10-18 20:15 | Emergency Department Report ---
ED Chest Pain HPI - General Chief Complaint: Extremity Problem,Nontraumatic Stated Complaint: CHEST PAIN, SOB, LEG PAIN PUI?: No Time Seen by Provider: 10/18/20 20:10 Source: patient Mode of arrival: Ambulatory Limitations: No Limitations - History of Present Illness Initial Comments: Patient is a 44-year-old female that presents emergency room with complaints of chest pain, shortness of breath and left lower extremity pain and swelling. Patient states that the left lower extremity pain is in her left calf. Patient states the pain is worsening. Patient states the swelling is worsening. Patient states the chest pain is in her right chest. Patient states the pain in her right chest is worse with palpation and better with remaining still and not touching her chest. Patient states the shortness of breath is better with rest and worse with exertion. Patient states she has history of blood clots. Patient states she was placed on Eliquis and took her course. Patient states she came off in 2018. Patient states she has not had any problems. Patient states that her primary care center here to be evaluated. Patient denies recent travel. Patient denies recent international travel. Patient denies exposure to the novel coronavirus. Patient denies sick contacts. Patient denies fever and chills. Patient denies cough. Patient denies diarrhea. Patient denies coming in contact with anybody with symptoms of the novel coronavirus. MD Complaint: chest pain -: Sudden Pain Location: right chest Pain Radiation: none Severity: mild Severity scale (0 -10): 3 Improves With: rest Worsens With: palpation re: dyspnea. denies: nausea, vomting, diaphoresis Other Symptoms: leg swelling. denies: cough, fever, rash, acid taste in mouth, palpitations, burping Treatments Prior to Arrival: none Aspirin use within the Past 7 Days: (0) No - Related Data On Oral Contraceptives: No Home Medications Medication Instructions Recorded Confirmed Last Taken Azelastine/Fluticasone 2 pump INNOSTRIL BID 10/18/20 10/18/20 Unknown Claritin 10 mg PO DAILY 10/18/20 10/18/20 Unknown Losartan 25 mg PO DAILY 10/18/20 10/18/20 Unknown Previous Rx's Medication Instructions Recorded Last Taken Type Meclizine [Antivert] 25 mg PO TID PRN #40 tablet 02/07/19 Unknown Rx Allergies Allergy/AdvReac Type Severity Reaction Status Date / Time azithromycin [From Zithromax] AdvReac Severe Nausea Verified 10/18/20 16:24 ibuprofen [From Advil] AdvReac Intermediate Nausea Verified 10/18/20 16:24 Heart Score - HEART Score History: Slightly suspicious EKG: Normal Age: < 45 Risk factors: No known risk factors Troponin: < normal limit HEART Score: 0 - EKG Read Time Time EKG Completed: 18:07 EKG Read Time: 18:08 ED Review of Systems ROS: Stated complaint: CHEST PAIN, SOB, LEG PAIN Other details as noted in HPI Constitutional: denies: chills, fever Eyes: denies: eye pain, eye discharge, vision change ENT: denies: ear pain, throat pain Respiratory: see HPI, shortness of breath. denies: cough, wheezing Cardiovascular: as per HPI, chest pain. denies: palpitations Endocrine: no symptoms reported Gastrointestinal: denies: abdominal pain, nausea, diarrhea Genitourinary: denies: urgency, dysuria, discharge Musculoskeletal: as per HPI. denies: back pain, joint swelling, arthralgia Skin: denies: rash, lesions Neurological: denies: headache, weakness, paresthesias Psychiatric: denies: anxiety, depression Hematological/Lymphatic: denies: easy bleeding, easy bruising ED Past Medical Hx - Past Medical History Previous Medical History?: Yes Hx Hypertension: Yes (2015) Hx Heart Attack/AMI: No Hx Congestive Heart Failure: No Hx Diabetes: No Hx Pulmonary Embolism: Yes (September 2017) Hx GERD: Yes Hx Liver Disease: No Hx Renal Disease: No Hx Sickle Cell Disease: No Hx Arthritis: No Hx Headaches / Migraines: No Hx Seizures: No Hx Kidney Stones: No Hx Psychiatric Treatment: No Hx Asthma: No Hx COPD: No Hx Tuberculosis: No Hx HIV: No Additional medical history: fibroids. Iron deficiency. vertigo. thyroid - Surgical History Past Surgical History?: Yes Hx Breast Surgery: Yes (Srinath breast reduction 2008) Additional Surgical History: tubal ligation - Family History Family history: no significant - Social History Smoking Status: Never Smoker Substance Use Type: None - Medications Home Medications: Home Medications Medication Instructions Recorded Confirmed Last Taken Type Meclizine [Antivert] 25 mg PO TID PRN #40 tablet 02/07/19 10/18/20 Unknown Rx Azelastine/Fluticasone 2 pump INNOSTRIL BID 10/18/20 10/18/20 Unknown History Claritin 10 mg PO DAILY 10/18/20 10/18/20 Unknown History Losartan 25 mg PO DAILY 10/18/20 10/18/20 Unknown History ED Physical Exam - General Limitations: No Limitations General appearance: alert, in no apparent distress - Head Head exam: Present: atraumatic, normocephalic - Eye Eye exam: Present: normal appearance - ENT ENT exam: Present: mucous membranes moist - Neck Neck exam: Present: normal inspection - Respiratory Respiratory exam: Present: normal lung sounds bilaterally, chest wall tenderness (Right-sided chest wall tenderness to palpation. Palpation of the right chest wall reproduces symptoms.). Absent: respiratory distress - Cardiovascular Cardiovascular Exam: Present: regular rate, normal rhythm. Absent: systolic murmur, diastolic murmur, rubs, gallop - GI/Abdominal GI/Abdominal exam: Present: soft, normal bowel sounds - Extremities Exam Extremities exam: Present: full ROM, tenderness, pedal edema, calf tenderness (Left calf tenderness) - Back Exam Back exam: Present: normal inspection - Neurological Exam Neurological exam: Present: alert, oriented X3 - Psychiatric Psychiatric exam: Present: normal affect, normal mood - Skin Skin exam: Present: warm, dry, intact, normal color. Absent: rash ED Course Vital Signs 10/18/20 21:32 Respiratory 18 Rate O2 Sat by Pulse 100 Oximetry - Reevaluation(s) Reevaluation #1: I discussed all results and clinical findings with patient. I discussed plan of care with patient. Patient agrees with plan of care. Patient is stable for discharge. Patient will be discharged home. Patient given discharge instructions. Patient voiced understanding of discharge instructions. Patient information will be faxed over to her local cardiology group for further evaluation and treatment and risk stratification. 10/19/20 00:15 THEO score - Theo Score Age > 65: (0) No Aspirin use within the Past 7 Days: (0) No 3 or more CAD Risk Factors: (0) No 2 or more Angina events in past 24 hrs: (0) No Known CAD with more than 50% Stenosis: (0) No Elevated Cardiac Markers: (0) No ST Deviation Greater than 0.5mm: (0) No THEO Score: 0 ED Medical Decision Making - Lab Data Result diagrams: 10/18/20 17:14 10/18/20 17:14 - EKG Data -: EKG Interpreted by Me EKG shows normal: sinus rhythm, axis, intervals, QRS complexes, ST-T waves Rate: normal - Radiology Data Radiology results: report reviewed, image reviewed interpreted by me: Chest x-ray: No pneumonia, no pneumothorax, no foreign body, no osseous findings, no acute findings CHEST 2 VIEWS INDICATION / CLINICAL INFORMATION: Chest Pain. COMPARISON: CTA chest on 07/20/2019 FINDINGS: SUPPORT DEVICES: None. HEART / MEDIASTINUM: No significant abnormality. LUNGS / PLEURA: No significant pulmonary or pleural abnormality. No pneumothorax. ADDITIONAL FINDINGS: No significant additional findings. IMPRESSION: 1. No acute findings. CTA CHEST WITH IV CONTRAST INDICATION: SOB/CP/hx PE CONTRAST: 100 cc Omnipaque 350 IV COMPARISON: None currently available Three-plane MIP reconstructions were produced. All CT scans at this location are performed using CT dose reduction for ALARA by means of automated exposure control. NOTE: Resolution is decreased and artifact is introduced by the patient's size. FINDINGS: Mild enlargement of the left lobe of the thyroid with external extension and internal hypodensity are not definitely changed and No mediastinal or hilar masses are seen. Visualized portions of the upper abdomen show no acute abnormalities. Mild fatty attrition of the liver is seen. No pleural effusions are noted. No pneumothorax or pneumomediastinum are seen. Lung franco are clear. Aorta shows no aneurysmal dilatation or evidence of dissection. Adequate opacification of the pulmonary arterial system was achieved. Though there is some artifact due to the patient's size, I do not see strong evidence of pulmonary thromboembolism. IMPRESSION: No acute abnormalities are seen VL venous duplex LE LT INDICATION / CLINICAL INFORMATION: left leg pain/hx PE. TECHNIQUE: Duplex doppler imaging was performed using venous compression and other maneuvers. COMPARISON: None available. FINDINGS: No venous thrombosis is identified within the visualized extremity vasculature. ADDITIONAL FINDINGS: None. IMPRESSION: 1. No sonographic evidence for DVT in the visualized left lower extremity vasculature. - Medical Decision Making Patient is a 44-year-old female who presents emergency room with complaints of chest pain, shortness of breath, left lower extremity pain and swelling. Patient has history of DVT and PE. Patient had labs done which were essentially unremarkable. Patient's troponin was negative x2. Patient had a ultrasound of the left lower extremity was negative for a DVT. Patient had a chest x-ray which was negative for acute findings. Patient had a CTA which was negative for PE any acute findings. Patient had an EKG which was negative for acute findings showed a normal ST and sinus rhythm. I personally reviewed the chest x-ray and EKG. Patient is stable for discharge. Patient can follow-up with her primary care for further evaluation and treatment. - Differential Diagnosis Leg pain, DVT, PE, calf pain, chest pain, shortness of breath Critical care attestation.: If time is entered above; I have spent that time in minutes in the direct care of this critically ill patient, excluding procedure time. ED Disposition Clinical Impression: SOB (shortness of breath), Leg pain, left, Left leg swelling, Right-sided chest pain, Chest wall pain Chest pain Qualifiers: Chest pain type: unspecified Qualified Code(s): R07.9 - Chest pain, unspecified Disposition: DC-01 TO HOME OR SELFCARE Is pt being admited?: No Does the pt Need Aspirin: No Condition: Stable Instructions: Nonspecific Chest Pain, Adult, Chest Wall Pain, [id number] Additional Instructions: Patient to follow-up with primary care in 2 to 3 days. Patient to follow-up with non destructive testing technician in 2 to 3 days. Patient to rest. Patient to increase water. Patient to avoid strenuous exercise or heavy lifting until cleared by attic fans mechanic and primary care.. Patient to take Tylenol or ibuprofen as needed for pain. Patient to return to the ER if condition worsens, changes or new symptoms arise. Referrals: BOBY LYNN MD [Primary Care Provider] - 2-3 Days CONNIE MARK MD [Staff Physician] - 2-3 Days Time of Disposition: 00:08
--- NOTE | 2020-10-18 23:32 | Cat Scan Report ---
CTA CHEST WITH IV CONTRAST INDICATION: SOB/CP/hx PE CONTRAST: 100 cc Omnipaque 350 IV COMPARISON: None currently available Three-plane MIP reconstructions were produced. All CT scans at this location are performed using CT d ose reduction for ALARA by means of automated exposure control. NOTE: Resolution is decreased and artifact is introduced by the patient's size. FINDINGS: Mild enlargement of the left lobe of the thyroid with external extension and internal hypod ensity are not definitely changed and No mediastinal or hilar masses are seen. Visualized portions of the upper abdomen show no acute abnormalities. Mild fatty attrition of the liver is seen. No pleural effusions are noted. No pneumothorax or pneumomediastinum are seen. Lung franco are clear. Aorta shows no aneurysmal dilatation or evidence of dissection. Adequate opacification of the pulmonary arterial system was achieved. Though there is some artifact d ue to the patient's size, I do not see strong evidence of pulmonary thromboembolism. IMPRESSION: No acute abnormalities are seen Signer Name: Jayant Beck MD Signed: 10/18/2020 11:27 PM Workstation Name: [id number]
[2020-10-19 00:45] VITALS: BP 128/83
--- NOTE | 2020-10-19 10:03 | Electrocardiograph Report ---
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
== END 2020-10-19 00:46 | disposition home or self-care (01) ==
LOC: ED 15:44
DX: R07.89 Other chest pain (principal); R06.02 Shortness of breath; M79.605 Pain in left leg; M79.89 Other specified soft tissue disorders; I10 Essential (primary) hypertension; K21.9 Gastro-esophageal reflux disease without esophagitis; Z98.890 Other specified postprocedural states; Z79.899 Other long term (current) drug therapy; Z88.8 Allergy status to other drugs, medicaments and biological substances
CPT/HCPCS: 36415; 71046; 71275; 80053; 83690; 84484; 85025; 85610; 85730; 93005; 93971; 99284; Q9967